=== PATIENT | male | born 1955 | race Caucasian/White ===

== ENCOUNTER → 2019-09-13 | Outpatient (CLI) | payer BC, OTHER | END | disposition home or self-care (01) | LOC: PLD 11:47 → LAB SHORT 11:47 | DX: D48.5 Neoplasm of uncertain behavior of skin (principal) | CPT/HCPCS: 88305 ==

== ENCOUNTER → 2019-10-12 | Outpatient (CLI) | payer BC, OTHER | END | disposition home or self-care (01) | LOC: LAB SHORT 14:48 → PLD 14:48 | DX: C44.310 Basal cell carcinoma of skin of unspecified parts of face (principal) | CPT/HCPCS: 88305 ==

== ENCOUNTER 2021-02-26 08:43 | Day surgery (SDC) | payer BC, OTHER ==
[~2021-02-26] VITALS: Ht 170.2 cm; Wt 87.0 kg
[~2021-02-26 08:43] MED LIST: LEVOTHYROXINE50 MC1 PO; MAGNESIUM OXID500 MG; MULTIPLE VITAM1 EACH PO; TUMS500 MG; Viagra100 MG
== END 2021-02-26 10:32 | disposition home or self-care (01) ==
LOC: ORSCSDS 08:43
PROVIDERS: Internal Medicine Gastroenterology
PROC: 0DBN8ZX Excision of Sigmoid Colon, Via Natural or Artificial Opening Endoscopic, Diagnostic (ICD-10-PCS; principal; 2021-02-26 09:45)
DX: Z12.11 Encounter for screening for malignant neoplasm of colon (principal); K62.1 Rectal polyp; E66.01 Morbid (severe) obesity due to excess calories; Z68.31 Body mass index [BMI] 31.0-31.9, adult; E78.5 Hyperlipidemia, unspecified; K57.30 Diverticulosis of large intestine without perforation or abscess without bleeding; K64.8 Other hemorrhoids; Z79.899 Other long term (current) drug therapy
CPT/HCPCS: 88305; J2704; J7120

== ENCOUNTER 2021-07-07 08:11 | Inpatient (IN) | payer BC, OTHER ==
[~2021-07-07] VITALS: Ht 170.2 cm; Wt 95.2 kg
[2021-07-07 08:39] LABS: BASOPHILS ABSOLUTE AUTO 0.03 K/mm3 (0.00-0.23); BASOPHILS PERCENT AUTO 0 % (0-2); EOSINOPHILS PERCENT AUTO 0 % (0-6); Hematocrit 41.5 % (37.0-53.0); Hemoglobin 14.1 g/dL (13.5-17.5); IMMATURE GRAN ABSOLUTE AUTO 0.28 K/mm3 (0.00-0.10); IMMATURE GRAN PERCENT AUTO 1 % (0-1); LYMPHOCYTES ABSOLUTE AUTO 1.53 K/mm3 (0.84-5.20); LYMPHOCYTES PERCENT AUTO 8 % (21-46); MONOCYTES ABSOLUTE AUTO 1.35 K/mm3 (0.16-1.47); MONOCYTES PERCENT AUTO 7 % (4-13); Mean Corpuscular HGB 29.3 pg (26.0-34.0); Mean Corpuscular Volume 86 fL (80-100); Mean Platelet Volume 9.5 fL (9.1-12.4); NEUTROPHILS PERCENT AUTO 84 % (41-73); Platelet Count 340 K/mm3 (150-400); RDW Coefficient Variation 13.6 % (11.7-14.2); RDW Standard Deviation 43.9 fL (35.1-46.3); Red Blood Cell Count 4.81 M/mm3 (4.30-5.90); White Blood Cell Count 20.19 K/mm3 (4.00-11.30)
[2021-07-07 08:54] LABS: Alanine Aminotransfer (ALT/SGP 129 U/L (12-78); Albumin, Blood 3.1 g/dL (3.4-5.0); Albumin/Globulin Ratio 0.7 (0.8-1.8); Alk Phos 72 U/L (50-136); Anion Gap 23 mmol/L (6-16); Aspartate Aminotrans (AST/SGOT 101 U/L (12-37); Bilirubin, Total 1.2 mg/dL (0.1-1.0); Blood Urea Nitrogen 38 mg/dL (8-24); Bun/Creatinine Ratio 23.9 (12.0-20.0); CO2, Blood 12 mmol/L (21-32); Calcium, Blood 8.4 mg/dL (8.5-10.1); Chloride, Blood 93 mmol/L (98-108); Creatinine, Blood 1.59 mg/dL (0.60-1.20); Globulin, Blood 4.5 g/dL (2.2-4.0); Glomerular Filtration Rate 43 (60-); Glucose, Blood 191 mg/dL (70-99); Potassium, Blood 4.2 mmol/L (3.5-5.5); Sodium, Blood 128 mmol/L (136-145); Total Protein, Blood 7.6 g/dL (6.4-8.2); Troponin I 0.365 ng/mL (0.000-0.040)
[2021-07-07 09:27] LABS: PCO2 Arterial 27.3 mmHg (35-45); PO2 Arterial 61.1 mmHg (80-100); pH Blood Arterial 7.38 (7.35-7.45)
[2021-07-07 10:25] LABS: International Normalized Ratio 1.28; Prothrombin Time Results 13.6 Sec (9.7-11.5)
--- NOTE | 2021-07-07 14:01 | NUR ---
PT TO ICU 8 FROM ED. PT ARRIVES INTUBATED WITH VENT SETTINGS AC 18/450/12/70%, 8.0 ETT, 25 @ TEETH. PROPOFOL @10 MCG/KG/MIN AND ED VERSED GTT. VERSED GTT AND HEPARIN GTT DISCONTINUED PER SUPERVISOR FITTING. PROPOFOL INCREASED TO 30 MCG/KG/MIN PT HAS RR IN THE MID 40'S. FIO2 INCREASED TO 100% UPON TRANSFERRING PT TO ICU BED. LUNG SOUNDS CLEAR/DIM, WATER/BLOOD TINGED OUTPUT FROM ETT. OGT TO LIS, SMALL AMOUNT OF DARK BROWN BILE NOTICED. PT HAS PINPOINT PUPILS, BRISK REACTION TO LIGHT. PT FAILS TO FOLLOW COMMANDS BUT WITHDRAWS FROM PAINFUL STIMULATION AND APPEARS TO REACH FOR TUBE. TEMP SALDANA PATENT AND DRAINING. CURRENT CORE TEMP 99.5. BILATERAL PARDO ABRASIONS NOTED. VSS AT THIS TIME. DR. AYALA IN TO ASSESS PATIENT.
[2021-07-07 15:49] LABS: Source, Urine Catheter
[2021-07-07 15:56] LABS: Appearance, Urine Clear (Clear); Bilirubin, Urine Neg (Neg); Blood, Urine 3+ (Neg); Color, Urine Yellow (P-Yellow); Glucose Qualitative, Urine Neg (Neg); Ketones, Urine Neg (Neg); Leukocyte Esterase, Urine Neg (Neg); Nitrite, Urine Neg (Neg); Protein, Urine 2+ (Neg); Specific Gravity, Urine 1.015 (1.003-1.022); Urobilinogen, Urine NORM (Normal)
[2021-07-07 16:20] LABS: White Blood Cells, Urine 0-2 /hpf (0-5)
--- NOTE | 2021-07-07 16:20 | NUR ---
PT'S SON MILE ([phone]) CALLED FOR UPDATE. PER SON, IS "VERY UPSET" REGARDING PT'S SUDDEN DECLINE AND IS REQUESTING SON CALL FOR UPDATES. REVIEWED PT'S SYMPTOMS AND PAST MEDICAL HISTORY. PER PT'S SON, PT IS "HEALTHY AND ACTIVE" HAS NO PRIOR MEDICAL HISTORY EXCEPT SEASONAL ALLERGIES. PT WAS HAVING AN "ALLERGY ATTACK" YESTERDAY AND HAD A "COUGH" THAT GOT INCREASINGLY WORSE. SON DENIES ANY DRUG/ALCOHOL ABUSE AND DOES NOT BELIEVE PT TAKES ANY PRESCRIBED MEDICATIONS. VERBAL BLOOD CONSENT AND RELEASE OF INFORMATION OBTAINED FROM SON.
[2021-07-07 16:22] LABS: Amorphous Light (0-Heavy); Bacteria Few /hpf; Squamous Epithelial Cells Not Seen /hpf (Few)
[2021-07-07 16:41] LABS: U Amphetamine Screen Not Detected; U Barbituate Screen Not Detected; U Benzodiazapine Screen Not Detected; U Buprenorphine Screen Not Detected; U Cannabinoids Screen Not Detected; U Cocaine Screen Not Detected; U Methadone Screen Not Detected; U Methamphetamine Screen Not Detected; U Opiates Screen Not Detected; U Oxycodone Screen Not Detected; U Phencyclidine Screen Not Detected; U Propoxyphene Screen Not Detected
[2021-07-07 17:07] LABS: Albumin, Blood 3.1 g/dL (3.4-5.0); Anion Gap 22 mmol/L (6-16); Blood Urea Nitrogen 39 mg/dL (8-24); Bun/Creatinine Ratio 23.8 (12.0-20.0); CO2, Blood 12 mmol/L (21-32); Calcium, Blood 8.8 mg/dL (8.5-10.1); Chloride, Blood 93 mmol/L (98-108); Creatinine, Blood 1.64 mg/dL (0.60-1.20); Glomerular Filtration Rate 42 (60-); Glucose, Blood 191 mg/dL (70-99); Phosphorus, Blood 6.3 mg/dL (2.5-4.9); Potassium, Blood 4.4 mmol/L (3.5-5.5); Sodium, Blood 127 mmol/L (136-145)
--- NOTE | 2021-07-07 17:21 | NUR ---
SPOKE WITH PT'S MOTHER IN LAW (JONNY) WHO HAS KNOWN PT "SINCE HE WAS A CHILD". PER JONNY, PT HAS NO PREVIOUS MEDICAL HISTORY AND DOES NOT TAKE ANY PRESCRIPTION MEDICATIONS. JONNY UPDATED WITH PT'S STATUS AND PLAN OF CARE.
--- NOTE | 2021-07-07 18:08 | NUR ---
SHIFT SUMMARY NO ACUTE CHANGES FOLLOWING ADMISSION TO ICU. PT REMAINS INTUBATED, VENT SETTINGS AC 18/450/12/80% WITH SATS IN THE LOW 90'S. PROPOFOL @ 35 MCG/KG/MIN, INCREASED D/T FACIAL GRIMACING. LEVOPHED GTT STARTED D/T HYPOTENSION, CURRENT INFUSION RATE 2 MCG/MIN. 900 ML URINARY OUTPUT FROM SALDANA. CURRENT TEMP 97.9. PICC LINE PLACED TO DIXON. PT'S FAMILY UPDATED WITH PLAN OF CARE AND PT'S STATUS. WILL REPORT TO ONCOMING NURSE.
--- NOTE | 2021-07-07 20:00 | NUR ---
ASSUMPTION OF CARE RECEIVED REPORT FROM JANETH FRANCIS AT 1915, ASSUMED CARE OF PATIENT. PT IS INTUBATED AND SEDATED ON PROPOFOL @ 35MCG/KG/MIN, FIO2 OF 80% DECREASED TO 70% AND SATS >95%. PT WITHDRAWS FROM PAIN. VENT AC: 18/450/12/70%. LUNGS ARE CLEAR THROUGHOUT. NO SECRETIONS IN ETT WITH SUCTIONING. NSR WITH RATE 70-80'S. BLOOD PRESSURES HYPERTENSIVE ON LEVOPHED 2MCGMCG/MIN, TURNED ON STAND BY. OG TUBE TO INTERMITTENT SUCTION WITH MINIMAL BILE OUTPUT. TEMP SALDANA PATENT DRAINING CLEAR, YELLOW URINE. REVIEWING ORDERS, WILL TREAT PRESCRIBED.
[2021-07-08 04:30] LABS: BASOPHILS ABSOLUTE AUTO 0.03 K/mm3 (0.00-0.23); BASOPHILS PERCENT AUTO 0 % (0-2); EOSINOPHILS PERCENT AUTO 0 % (0-6); Hematocrit 36.7 % (37.0-53.0); Hemoglobin 12.7 g/dL (13.5-17.5); IMMATURE GRAN ABSOLUTE AUTO 0.16 K/mm3 (0.00-0.10); IMMATURE GRAN PERCENT AUTO 1 % (0-1); LYMPHOCYTES ABSOLUTE AUTO 0.66 K/mm3 (0.84-5.20); LYMPHOCYTES PERCENT AUTO 5 % (21-46); MONOCYTES ABSOLUTE AUTO 0.71 K/mm3 (0.16-1.47); MONOCYTES PERCENT AUTO 6 % (4-13); Mean Corpuscular HGB 29.1 pg (26.0-34.0); Mean Corpuscular HGB Conc 34.6 g/dL (31.5-36.5); Mean Corpuscular Volume 84 fL (80-100); Mean Platelet Volume 9.5 fL (9.1-12.4); NEUTROPHILS ABSOLUTE AUTO 10.94 K/mm3 (1.96-9.15); NEUTROPHILS PERCENT AUTO 88 % (41-73); Platelet Count 241 K/mm3 (150-400); RDW Coefficient Variation 13.6 % (11.7-14.2); RDW Standard Deviation 42.1 fL (35.1-46.3); Red Blood Cell Count 4.37 M/mm3 (4.30-5.90)
[2021-07-08 05:10] LABS: Albumin, Blood 2.5 g/dL (3.4-5.0); Albumin/Globulin Ratio 0.7 (0.8-1.8); Bilirubin, Total 0.5 mg/dL (0.1-1.0); Bun/Creatinine Ratio 31.7 (12.0-20.0); Calcium, Blood 7.8 mg/dL (8.5-10.1); Creatinine, Blood 1.23 mg/dL (0.60-1.20); Globulin, Blood 3.8 g/dL (2.2-4.0); Potassium, Blood 3.9 mmol/L (3.5-5.5); Total Protein, Blood 6.3 g/dL (6.4-8.2)
--- NOTE | 2021-07-08 06:27 | NUR ---
PT REMAINS INTUBATED AND SEDATED ON PROPOFOL @ 35MCG/KG/MIN. VENT AC: 18/450/12/55%, SATS 95%. PT WITHDRAWS TO PAINFUL STIMULI. LUNG SOUNDS CLEAR THROUGHOUT, DIMINISHED IN BASES. NO SECRETIONS IN ETT. BLOOD PRESSURES REMAIN STABLE WITH LEVOPHED @ 1MCG/MIN. OG TO LIS WITH DARK GREEN BILE DRAINAGE. TEMP SALDANA PATENT DRAINING CLEAR, YELLOW URINE. TEMPERATURE HAS BEEN 95-96F WITH PT BEING DIAPHORETIC/CLAMMY, WARM BLANKETS PLACED. WILL CONTINUE TO MONITOR AND REPORT TO ONCOMING RN.
--- NOTE | 2021-07-08 11:05 | NUR ---
ASSUMED CARE OF PT, REPORT RCV'D FROM JANETH ZAMBRANO. PT INTUBATED AND SEDATED. VENT SETTINGS AC 18/450/12/55% WITH SATS>90%. PROPOFOL @ 35 MCG/KG/MIN FOR SEDATION, PT FAILS TO FOLLOW COMMANDS BUT WITHDRAWS FROM PAIN AND DISPLAYS FACIAL GRIMACING WITH NOXIOUS STIMULI. LEVOPHED AT 1 MCG/MIN TO MAINTAIN MAP>65. OGT TO LIS, MODERATE AMOUNT OF GREEN BILE OUTPUT. TEMP SALDANA PATENT AND DRAINING TO GRAVITY. MULTIPLE FAMILY MEMBERS AND FRIENDS CALLING THIS AM, THIS RN SPOKE WITH AND DESIGNATED HER POINT OF CONTACT FOR PEOPLE TO LIMIT CALLS TO THE HOSPITAL. , JAKE, AGREES FOR NURSING STAFF TO REFER FRIENDS/FAMILY TO CALL HER. SEE FULL SHIFT ASSESSMENT.
--- NOTE | 2021-07-08 14:50 | NUR ---
UPDATED PT'S SON MILE. REMINDED FAMILY THAT D/T EXCESSIVE PHONE CALLS FOR THIS PT WE NEED A POINT OF CONTACT TO REFER PHONE CALLS TO. PER SON AND , WILL CALL IN THE MORNING FOR UPDATE AND SON (MILE) WILL CALL IN THE EVENING FOR UPDATE.
--- NOTE | 2021-07-08 18:12 | NUR ---
SHIFT SUMMARY PT REMAINS INTUBATED AND SEDATED. VENT SETTINGS AC 18/450/12/50% WITH SATS LOW 90%. PROPOFOL REMAINS AT 35 MCG/KG/MIN. NO NEUROLOGICAL CHANGES. OGT TO LIS WITH 300 ML GREEN BILE OUTPUT, WILL START TUBE FEED TOMORROW PER DR. AYALA, DIETARY CONSULT PLACED. 900 ML URINARY OUTPUT FROM SALDANA. LEVOPHED REMAINS OFF AND BP REMAINS WNL. VSS T/O SHIFT. WILL REPORT TO ONCOMING NURSE.
--- NOTE | 2021-07-08 19:30 | NUR ---
ASSUMPTION OF CARE RECEIVED REPORT FROM JANETH FRANCIS @ 1900 AND ASSUMED CARE. PT REMAINS INTUBATED AND SEDATED, PROPOFOL INCREASED TO 40MCG/KG/MIN WHILE IN ROOM DUE TO INCREASED COUGHING AGAINST THE VENTILATOR. VENT AT AC: 18/450/12/50%, SATS AT 98%. PT GRIMACES TO NOXIOUS STIMULI, BUT UNABLE TO FOLLOW COMMANDS. LUNGS CLEAR BILATERALLY, SCANT SECRETIONS IN ETT. BLOOD PRESSURES STABLE, AND PT AFEBRILE IN THE 98F RANGE. OG TO LIS, GREEN BILE. TEMP SALDANA PATENT DRAINING CLEAR YELLOW URINE. WILL CONTINUE TO MONITOR AND PROVIDE TREATMENT PRESCRIBED.
--- NOTE | 2021-07-08 23:09 | NUR ---
PHYSICIAN COMMUNICATION CALLED DR. AYALA REGARDING PT INCREASE IN PROPOFOL. PT COUGHING AGAINST TUBE RESULTING IN DESATURATIONS AND SHOWING SIGNS OF DISCOMFORT, I.E. GRIMACING. GAVE NEW ORDER FOR FENTANYL 75-100MCG Q2H PRN.
[2021-07-09 03:25] LABS: BASOPHILS ABSOLUTE AUTO 0.01 K/mm3 (0.00-0.23); BASOPHILS PERCENT AUTO 0 % (0-2); EOSINOPHILS PERCENT AUTO 0 % (0-6); Hematocrit 33.1 % (37.0-53.0); Hemoglobin 11.5 g/dL (13.5-17.5); IMMATURE GRAN PERCENT AUTO 2 % (0-1); LYMPHOCYTES ABSOLUTE AUTO 0.38 K/mm3 (0.84-5.20); LYMPHOCYTES PERCENT AUTO 3 % (21-46); MONOCYTES ABSOLUTE AUTO 0.78 K/mm3 (0.16-1.47); MONOCYTES PERCENT AUTO 7 % (4-13); Mean Corpuscular HGB 29.9 pg (26.0-34.0); Mean Corpuscular HGB Conc 34.7 g/dL (31.5-36.5); Mean Corpuscular Volume 86 fL (80-100); Mean Platelet Volume 9.7 fL (9.1-12.4); NEUTROPHILS ABSOLUTE AUTO 9.69 K/mm3 (1.96-9.15); NEUTROPHILS PERCENT AUTO 88 % (41-73); NRBC ABSOLUTE 0.02 K/mm3 (0.00-0.02); NRBC Auto 0.2 /100 WBC (0.0-0.2); Platelet Count 215 K/mm3 (150-400); RDW Coefficient Variation 13.8 % (11.7-14.2); RDW Standard Deviation 43.4 fL (35.1-46.3); Red Blood Cell Count 3.85 M/mm3 (4.30-5.90); White Blood Cell Count 11.06 K/mm3 (4.00-11.30)
[2021-07-09 03:41] LABS: Albumin, Blood 2.2 g/dL (3.4-5.0); Anion Gap 7 mmol/L (6-16); Blood Urea Nitrogen 39 mg/dL (8-24); Bun/Creatinine Ratio 34.2 (12.0-20.0); CO2, Blood 23 mmol/L (21-32); Calcium, Blood 7.4 mg/dL (8.5-10.1); Chloride, Blood 112 mmol/L (98-108); Creatinine, Blood 1.14 mg/dL (0.60-1.20); Glomerular Filtration Rate >60 (60-); Glucose, Blood 149 mg/dL (70-99); Phosphorus, Blood 3.5 mg/dL (2.5-4.9); Sodium, Blood 142 mmol/L (136-145)
--- NOTE | 2021-07-09 06:06 | NUR ---
PT REMAINS INTUBATED AND SEDATED. PROPOFOL WAS INCREASED TO 50MCG/KG/MIN DUE TO COUGHING OVER THE VENT AND SHOWING S/S OF DISCOMFORT. VENT REMAINED AT AC: 18/450/12/50%, SATS 93-94%. CONTINUES TO WITHDRAW TO NOXIOUS STIMULI AND UNABLE TO FOLLOW COMMANDS. HR IN 50-60'S, BP STABLE, MAP REMAINED >65. OG TO ILS. TEMP SALDANA PATENT DRAINING TO GRAVITY, CLEAR/YELLOW URINE. WILL GIVE REPORT TO ONCOMING RN.
--- NOTE | 2021-07-09 08:22 | NUR ---
[place] of Care: Care assumed at 0700hr. Patient intubated and sedated with propofol gtt at 50mcg/kg/min. Patient responds to noxious stimuli with facial grimace, but not moving any extremities or following any commands. Positive gag and cough reflex. Propofol gtt decreased to 45mcg/kg/min, plan to continue to decrease to better assess neuro status. Vent to AC 18/450/12/50%, spO2- 93-95%, tolerating vent without difficulty. Will discuss decreasing PEEP with Dr. Wen this morning, will also discuss starting TF. OG currently to low suction, with small amount of green bile output in tubing. PICC line patent and intact, infusing without difficulty. Shepherd cath patent and intact, draining clear yellow urine. Bilateral soft wrist restraints in place to protect lines, tubes, cords. Will continue to monitor.
--- NOTE | 2021-07-09 18:54 | NUR ---
Shift Summary: No significant changes throughout shift. Spoke with Dr. Wen this morning, received plan to decrease PEEP as tolerated. RT Latricia decreased PEEP to 10 approx 1000hr, FiO2 also decreased to 40% at approx 1200hr. Vent now to AC 18/450/10/405, spO2 90-95% for remainder of shift. Occasional coughing but otherwise tolerating vent without difficulty. Propofol gtt decreased to 40mcg/kg/min, then stopped for sedation vacation this afternoon. Patient able then able to open eyes to verbal stimuli, and follow commands to squeeze hands and move feet. Unable to nod yes/no or follow any other commands. Sedation then re-started after approx 25min as patient was becoming increasingly restless, respiratory rate increased to 40, and spO2 decreased to 87-88. Prn fentanyl x1 dose also given (per facial grimace) with good effect noted. Patient now appear calm and comfortable. Shepherd cath remains patent and intact, draining dark green tinged urine. Will continue to monitor until report to NOC shift RN.
--- NOTE | 2021-07-09 19:41 | NUR ---
ASSUMPTION OF CARE Received report from JANETH Juárez @ 4545. Pt remains intubated and sedated. Propofol at 45mcg/kg/min. Pt continues to respond to noxious stimuli, but does not follow commands. Vent AC: 18/450/10/50%, sats at 93%. HR is sinus duyen in 50's. Tube feed at 25ml/hr, 30ml q4h flush; goal 35ml/hr. Temp roberto patent draining clear/yellow-green urine. Will continue to monitor and treat as prescribed.
--- NOTE | 2021-07-10 02:07 | NUR ---
PT CONTINUES TO BE TACHYPNEIC AND BREATH OVER THE VENT. SHOWING INCREASED SIGNS OF DISCOMFORT, I.E. GRIMACING. PRN FENTANYL GIVEN AND PROPOFOL INCREASED. WILL MONITOR FOR EFFECT.
[2021-07-10 03:44] LABS: BASOPHILS ABSOLUTE AUTO 0.02 K/mm3 (0.00-0.23); BASOPHILS PERCENT AUTO 0 % (0-2); EOSINOPHILS PERCENT AUTO 0 % (0-6); Hematocrit 33.6 % (37.0-53.0); Hemoglobin 11.2 g/dL (13.5-17.5); IMMATURE GRAN ABSOLUTE AUTO 0.48 K/mm3 (0.00-0.10); IMMATURE GRAN PERCENT AUTO 4 % (0-1); LYMPHOCYTES ABSOLUTE AUTO 0.45 K/mm3 (0.84-5.20); LYMPHOCYTES PERCENT AUTO 4 % (21-46); MONOCYTES ABSOLUTE AUTO 0.81 K/mm3 (0.16-1.47); MONOCYTES PERCENT AUTO 7 % (4-13); Mean Corpuscular HGB 29.3 pg (26.0-34.0); Mean Corpuscular HGB Conc 33.3 g/dL (31.5-36.5); Mean Corpuscular Volume 88 fL (80-100); Mean Platelet Volume 9.5 fL (9.1-12.4); NEUTROPHILS ABSOLUTE AUTO 9.57 K/mm3 (1.96-9.15); NEUTROPHILS PERCENT AUTO 85 % (41-73); NRBC ABSOLUTE 0.06 K/mm3 (0.00-0.02); NRBC Auto 0.5 /100 WBC (0.0-0.2); Platelet Count 203 K/mm3 (150-400); RDW Coefficient Variation 14.2 % (11.7-14.2); RDW Standard Deviation 45.1 fL (35.1-46.3); Red Blood Cell Count 3.82 M/mm3 (4.30-5.90); White Blood Cell Count 11.33 K/mm3 (4.00-11.30)
[2021-07-10 04:03] LABS: Albumin, Blood 2.1 g/dL (3.4-5.0); Anion Gap 7 mmol/L (6-16); Blood Urea Nitrogen 41 mg/dL (8-24); CO2, Blood 22 mmol/L (21-32); Calcium, Blood 6.9 mg/dL (8.5-10.1); Chloride, Blood 115 mmol/L (98-108); Glomerular Filtration Rate >60 (60-); Glucose, Blood 149 mg/dL (70-99); Magnesium, Blood 3.4 mg/dL (1.6-2.4); Phosphorus, Blood 2.4 mg/dL (2.5-4.9); Potassium, Blood 3.9 mmol/L (3.5-5.5); Sodium, Blood 144 mmol/L (136-145)
--- NOTE | 2021-07-10 04:19 | NUR ---
PT CONTINUES TO BREATH OVER VENT, RATES OF 30-40'S AND O2 SATS 89%. GRIMACING WITH ORAL CARE. GAVE PRN ATIVAN 2MG AND RT INCREASED FIO2 TO 60%. RESPIRATIONS NOW DECREASED TO 20-30'S AND O2 SATS 94%. WILL CONTINUE TO MONITOR AND TREAT ORDERED.
--- NOTE | 2021-07-10 06:36 | NUR ---
Pt remains intubated and sedated. Propofol @ 55mcg/min/kg, titrated as previously charted for comfort and sedation. Ativan and Fentanyl given prn as sedation adjunct due to pt breathing over vent/tachypnic rates. Vent AC: 18/450/10/60%, sats at 94%. Lungs remained clear bilaterally. Respirations now in 20's. Continues to withdraw from noxious stimuli and weak equal transit bus driver bilaterally. Received info from that pt is very hard of hearing. HR remained NS in 60-70's. Blood pressures stable. Tube feed via OG is at goal of 35ml/hr with q4h 30ml flushes. Residuals <10mls. Temp roberto patent, draining greenish/yellow clear urine. Pt febrile at 101.1, Tylenol given, pt now at 99.0. Will give report to oncoming RN.
--- NOTE | 2021-07-10 08:00 | NUR ---
INITIAL ASSESSMENT PATIENT INTUBATED AND SEDATED. PATIENT RESPONDS TO PAINFUL STIMULI. PATIENT WEAKLY MOVES EXTREMITIES TO PAIN. PATIENT WIYOT AT BASELINE PER REPORT. SCLERA REDDENED. PATIENT AFEBRILE. NO SIGNS OF PAIN NOTED. LUNGS COARSE IN UPPER LOBES AND CLEAR IN LOWER LOBES. PATIENT ON VENT SETTINGS OF AC 18, TV 450, PEEP 10 AND 60% FIO2. SCANT AMOUNT OF THICK, HAAS SECRETIONS BEING SUCTIONED FROM ETT. RR 20S TO 40S. PATIENT IN SB TO SR, HR 50S TO 60S. NORMOACTIVE BS NOTED. OG IN PLACE. TF AT GOAL RATE. DATE OF LAST BM UNKNOWN. TEMP SALDANA DRAINING CLEAR, YELLOW URINE. ABRASION NOTED TO BILAT SHINS. PROPOFOL AT 55 MCG/ KG/ MINUTE, NS AT 100 MLS/ HOUR. BED LOW, CALL LIGHT IN REACH. WILL CONTINUE TO MONITOR PATIENT FREQUENTLY THROUGHOUT SHIFT.
--- NOTE | 2021-07-10 11:00 | NUR ---
DR. CHACON UPDATED ON PATIENT STATUS. NO ORDER FOR PHOS OF 2.4.
--- NOTE | 2021-07-10 12:00 | NUR ---
PATIENT AFEBRILE. HR 60S TO 70S. SBP LOW 100S TO 120S. PATIENT REMAINS ON SAME VENT SETTINGS. URINE GREEN IN COLOR. BLOOD SUGAR OF 169. NO OTHER ACUTE CHANGES TO NOTE ON AT THIS TIME. WILL CONTINUE TO MONITOR.
--- NOTE | 2021-07-10 12:12 | NUR ---
NO SEDATION VACATION TODAY PER DR. CHACON.
--- NOTE | 2021-07-10 16:00 | NUR ---
PATIENT AFEBRILE. HR 60S TO 70S. RR 20S TO 40S. SBP 1-TEENS TO 120S. VHP AT NEW GOAL RATE OF 20 MLS/ HOUR. NO OTHER ACUTE CHANGES TO NOTE ON AT THIS TIME. WILL CONTINUE TO MONITOR.
--- NOTE | 2021-07-10 19:27 | NUR ---
SHIFT SUMMARY PATIENT REMAINED INTUBATED AND SEDATED. PATIENT CONTINUED TO RESPOND TO PAINFUL STIMULI. PATIENT HAD TMAX OF 99.1 DEGREES FAHRENHEIT. LUNGS REMAINED COARSE IN UPPER LOBES AND DIM IN LOWER LOBES. RR 20S TO 50S. PATIENT REMAINED ON AC 18, TV 450, PEEP 10 AND 60% FIO2. CONTINUED TO SUCTION UP SCANT AMOUNTS OF THICK, DARK HAAS SPUTUM FROM ETT. PATIENT REMAINED SB TO SR, HR 50S TO 70S. SBP 90S TO 120S. 1000 GREEN URINE OUT FROM SALDANA. NO CHANGE IN SKIN. NS TKO. PROPOFOL AT 55 MCG/ KG/ MINUTE. SPUTUM CULTURE SENT TO LAB. BLOOD SUGARS 169 AND 151. BED LOW, CALL LIGHT IN REACH. PATIENT APPEARS COMFORTABLE AT THIS TIME. REPORT GIVEN TO ASSUMING CLINICAL NUTRITIONIST RN.
--- NOTE | 2021-07-10 20:11 | NUR ---
ASSUMPTION OF CARE Received report from JANETH Mars @ 191. Pt remains intubated and sedated. Propofol @ 55/mcg/kg/min. Grimacing with oral care, unable to follow commands. Vent: AC 18/450/10/60%, sats 93-94%. Lungs coarse in uppers, dim and clear in bases. Scant thick, mendiola secretions with ETT suctioning. SR 50-60's. BP stable. Generalized edema noted throughout, trace scrotal and 1+ bilateral hands. Pt afebrile. Tube feed, VHP @ goal of 20ml/hr with q4 30ml flush, 10ml residual. Temp roberto patent and draining clear greem/yellow urine. Will continue to monitor and treat patient as prescribed.
--- NOTE | 2021-07-11 00:23 | NUR ---
OG REPLACEMENT Upon completing pt's bath, OG tube found outside of the patient. New OG placed and confirmed by gastric contents. VSS, will continue to monitor the patient and treat as prescribed.
[2021-07-11 04:28] LABS: BASOPHILS ABSOLUTE AUTO 0.03 K/mm3 (0.00-0.23); BASOPHILS PERCENT AUTO 0 % (0-2); EOSINOPHILS ABSOLUTE AUTO 0.04 K/mm3 (0.00-0.68); EOSINOPHILS PERCENT AUTO 0 % (0-6); Hematocrit 36.3 % (37.0-53.0); Hemoglobin 11.9 g/dL (13.5-17.5); Mean Corpuscular HGB 28.7 pg (26.0-34.0); Mean Corpuscular HGB Conc 32.8 g/dL (31.5-36.5); Mean Corpuscular Volume 88 fL (80-100); Mean Platelet Volume 9.6 fL (9.1-12.4); NRBC ABSOLUTE 0.04 K/mm3 (0.00-0.02); NRBC Auto 0.3 /100 WBC (0.0-0.2); Platelet Count 173 K/mm3 (150-400); RDW Coefficient Variation 14.6 % (11.7-14.2); RDW Standard Deviation 46.8 fL (35.1-46.3); Red Blood Cell Count 4.14 M/mm3 (4.30-5.90); White Blood Cell Count 11.98 K/mm3 (4.00-11.30)
[2021-07-11 04:52] LABS: Albumin, Blood 2.1 g/dL (3.4-5.0); Anion Gap 5 mmol/L (6-16); Blood Urea Nitrogen 39 mg/dL (8-24); Bun/Creatinine Ratio 45.6 (12.0-20.0); CO2, Blood 24 mmol/L (21-32); Calcium, Blood 7.1 mg/dL (8.5-10.1); Chloride, Blood 113 mmol/L (98-108); Creatinine, Blood 0.86 mg/dL (0.60-1.20); Glomerular Filtration Rate >60 (60-); Glucose, Blood 129 mg/dL (70-99); Magnesium, Blood 3.4 mg/dL (1.6-2.4); Phosphorus, Blood 2.6 mg/dL (2.5-4.9); Potassium, Blood 4.2 mmol/L (3.5-5.5); Sodium, Blood 142 mmol/L (136-145)
[2021-07-11 05:03] LABS: IMMATURE GRAN ABSOLUTE AUTO 0.79 K/mm3 (0.00-0.10); IMMATURE GRAN PERCENT AUTO 7 % (0-1); LYMPHOCYTES ABSOLUTE AUTO 0.69 K/mm3 (0.84-5.20); LYMPHOCYTES PERCENT AUTO 6 % (21-46); MONOCYTES PERCENT AUTO 3 % (4-13); NEUTROPHILS ABSOLUTE AUTO 10.03 K/mm3 (1.96-9.15); NEUTROPHILS PERCENT AUTO 84 % (41-73)
--- NOTE | 2021-07-11 06:20 | NUR ---
Pt remains intubated and sedated. Propofol continues at 55mcg/kg/min, Fentanyl prn. Vent: AC 18/450/10/60%, sats 93-94%. Lungs clear with small thick, mendiola secretions via ETT suction. Pt febrile, T-max 100.2. OG: VHP at goal of 20ml/hr, residuals of 10mls. Temp roberto patent, draining clear green/yellow urine. VSS. Will give report to oncoming RN.
--- NOTE | 2021-07-11 10:15 | NUR ---
ASSUMED CARE OF PT, REPORT RCV'D FROM JANETH ZAMBRANO. PT INTUBATED AND SEDATED, VENT SETTINGS AC18/450/10/60% WITH SATS>90%. PROPOFOL INCREASED FROM 55 TO 60 MCG/KG/MIN D/T INCREASED RR. PT DISPLAYS FACIAL GRIMACING WITH ORAL CARE AND WITHDRAWS FROM PAINFUL STIMULI, FAILS TO FOLLOW COMMANDS AT THIS TIME. ABDOMEN FIRM WITH SLIGHT DISTENSION, HYPOACTIVE BOWEL TONES X4. VITAL HIGH PROTEIN @ 20 ML (GOAL RATE), LOW RESIDUALS. SALDANA PATENT AND DRAINING TO GRAVITY. SEE FULL SHIFT ASSESSMENT.
--- NOTE | 2021-07-11 18:18 | NUR ---
SHIFT SUMMARY PT REMAINS INTUBATED, VENT SETTINGS 18/450/10/85%. PT VERY EASILY AGITATED WITH ANY MOVEMENT CAUSING RR INCREASE INTO THE 50'S AND SATS DROPPING TO THE MID 70'S. PROPOFOL INCREASED TO 65 MCG/KG/MIN, FENTANYL AND ATIVAN PUSHES PRN. MODERATE AMOUNT OF THICK HAAS SECRETIONS FROM ETT. BP STABLE. PT'S SON MILE UPDATED WITH PT'S STATUS. WILL REPORT TO ONCOMING NURSE.
--- NOTE | 2021-07-11 20:09 | NUR ---
ASSUMED CARE REPORT RECEIVED FROM PENNY FOWLER AT 1930. PT INTUBATED AND SEDATED ON 65 MCG/KG OF PROPOFOL. VENT SETTINGS 18/450/10/85% WITH SPO2 90%. PT WITHDRAWS FROM PAINFUL STIMULI. LUNGS CLEAR WITH DIMINISHED BASES. HR 50'S SR ON MONITOR, SBP 115'S. TF RUNNING AT GOAL RATE OF 20 ML/HR WITH 30 ML/HR Q4H WATER FLUSHES. NEW ORDER PLACED FOR PRECEDEX. SALDANA DRAINING TO GRAVITY. HYPERACTIVE BOWEL TONES, 20 ML RESIDUALS OUT OF OG TUBE.
--- NOTE | 2021-07-11 22:40 | NUR ---
UDPATED DR CHACON REGARDING PT'S FIO2 AT 100% AND PT'S SPO2 87-88%. NEW ORDER TO INCREASE PEEP TO 15. RT NOTIFIED.
--- NOTE | 2021-07-12 02:03 | NUR ---
PT SPO2 DECREASED TO 84-86%, FENTANYL GIVEN WITH MINIMAL EFFECT. RT INCREASED PEEP TO 14. SMALL AMOUNT OF SECRETIONS SUCTIONED FROM ETT. FIO2 AT 100%. PT'S SPO2 INCREASED TO 98%.
[2021-07-12 03:46] LABS: PCO2 Arterial 43.7 mmHg (35-45); PO2 Arterial 84.8 mmHg (80-100); pH Blood Arterial 7.36 (7.35-7.45)
[2021-07-12 03:55] LABS: Hematocrit 36.9 % (37.0-53.0); Hemoglobin 11.8 g/dL (13.5-17.5); Mean Corpuscular HGB 29.1 pg (26.0-34.0); Mean Corpuscular Volume 91 fL (80-100); Mean Platelet Volume 9.7 fL (9.1-12.4); NRBC ABSOLUTE 0.02 K/mm3 (0.00-0.02); NRBC Auto 0.2 /100 WBC (0.0-0.2); Platelet Count 146 K/mm3 (150-400); RDW Coefficient Variation 14.6 % (11.7-14.2); RDW Standard Deviation 48.9 fL (35.1-46.3); Red Blood Cell Count 4.05 M/mm3 (4.30-5.90); White Blood Cell Count 10.57 K/mm3 (4.00-11.30)
[2021-07-12 04:14] LABS: Anion Gap 3 mmol/L (6-16); Blood Urea Nitrogen 36 mg/dL (8-24); Bun/Creatinine Ratio 43.6 (12.0-20.0); CO2, Blood 26 mmol/L (21-32); Chloride, Blood 113 mmol/L (98-108); Creatinine, Blood 0.83 mg/dL (0.60-1.20); Glomerular Filtration Rate >60 (60-); Glucose, Blood 164 mg/dL (70-99); Magnesium, Blood 3.6 mg/dL (1.6-2.4); Phosphorus, Blood 3.3 mg/dL (2.5-4.9); Sodium, Blood 142 mmol/L (136-145)
--- NOTE | 2021-07-12 04:38 | NUR ---
UPDATE PT SPO2 93-94% CXR AND REPOSITION DONE CAUSING SATS TO DROP AND SUSTAIN AT 85%. RT CALLED TO BEDSIDE, PT SUCTIONED WITH SCANT AMOUNT OF SECRETIONS FROM ETT PT REMAINS AT 85%. PEEP INCREASED TO 15, FIO2 REMAINS AT 100%. SATS INCREASE TO 89%.
--- NOTE | 2021-07-12 05:52 | NUR ---
SHIFT SUMMARY PT REMAINS INTUBATED AND SEDATED. PROPOFOL INFUSING AT 65 MCG/KG/MIN AND PRECEDEX AT 0.2 MCG/KG/HR. FIO2 INCREASED THIS SHIFT TO 100% AND PEEP INCREASED TO 15. CURRENT VENT SETTINGS 18/450/15/100%, PT CURRENT SPO2 92%. PT NOT TOLERATING BEING REPOSITIONED, SATS DECREASE WITH ANY ACTIVITY AND TAKES A LONG TIME TO RECOVER. PRN FENTANYL AND ATIVAN GIVEN PER EMAR. SALDANA DRAINING BLUE/GREEN URINE TO GRAVITY. LUNGS CONTINUE TO BE CLEAR WITH DIMINISHED BASES. TF RESIDUALS INCREASED T/O SHIFT, 0400 RESIDUALS OF 110 MLS. BOWEL TONES HYPOACTIVE. WILL CONTINUE TO MONITOR UNTIL REPORT GIVEN TO ONCOMING RN.
[2021-07-12 05:59] LABS: BAND PERCENT MAN 8 % (0-8); BASOPHILS PERCENT MAN 0 % (0-2); EOSINOPHILS PERCENT MAN 0 % (0-6); LYMPHOCYTES ABSOLUTE MAN 0.42 K/mm3 (0.84-5.20); LYMPHOCYTES PERCENT MAN 4 % (21-46); METAMYELOCYTE PERCENT MAN 1 % (0-0); MONOCYTES ABSOLUTE MAN 0.21 K/mm3 (0.16-1.47); MONOCYTES PERCENT MAN 2 % (4-13); MYELOCYTE ABSOLUTE MAN 0.21 K/mm3 (0.00-0.00); MYELOCYTE PERCENT MAN 2 % (0-0); NEUTROPHILS ABSOLUTE MAN 9.61 K/mm3 (1.96-9.15); SEG NEUTROPHILS PERCENT MAN 83 % (41-73); TOTAL CELLS COUNTED 100
--- NOTE | 2021-07-12 10:55 | NUR ---
ASSUMED CARE OF PT, REPORT RCV'D FROM JANETH VIGIL. PT INTUBATED AND SEDATED. PT'S SATS LOW 80% ON 100% FI02 THIS AM. DR. CHACON NOTIFIED AND VENT CHANGES MADE. PT CONTINUES TO SAT LOW 80% WITH INCREASED WORK OF BREATHING AND BREATH STACKING. DECISION TO PARALYZE PT. BIS MONITOR ATTACHED, PROPOFOL REMAINS AT 65 MCG/KG/MIN, PRECEDEX INCREASED TO 0.7 MCG/KG/HOUR BIS MONITOR 50-60. NIMBEX STARTED AT 1.5 MCG/KG/MIN, PT CONTINUED TO BE OUT OF COMPLIANCE WITH VENT WITH INCREASED RR AND WOB, 4/4 TOF. NIMBEX INCREASED PER EMAR RECOMMENDATION, PT CURRENTLY ON 7 MCG/KG/MIN (MAX 10), PT CONTINUES TO HAVE 4/4 TOF BUT IS COMPLIANT WITH VENT. SATS INCREASED TO MID 90'S. VENT SETTINGS 18/400/18/100%. PLAN TO PRONE THIS AFTERNOON. SEE FULL SHIFT ASSESSMENT
--- NOTE | 2021-07-12 13:05 | NUR ---
VENT SETTINGS AC 18/400/18/60% WITH SATS 89-91%. PT COMPLIANT WITH VENT SETTINGS. NIMBEX @ 3 MCG/KG/MIN 1/4 TOF, PROPOFOL 40 MCG/KG/MIN AND PRECEDEX 0.4 MCG/KG/HR BIS MONITOR 42. RESTRAINTS REMOVED.
--- NOTE | 2021-07-12 14:59 | NUR ---
SPOKE WITH PT'S SON MILE, UPDATED HIM WITH PT'S PROGRESS AND PLAN OF CARE.
--- NOTE | 2021-07-12 18:46 | NUR ---
SHIFT SUMMARY PT REMAINS INTUBATED AND SEDATED. VENT SETTINGS AC 18/400/18/40% WITH SATS 92%. PT PARALYZED, NIMBEX @ 2.5 MCG/KG/MIN (1/4 TOF RIGHT EYEBROW). PROPOFOL @ 40 MCG/KG/MIN, PRECEDEX ON STANDBY D/T BRADYCARDIA. BIS MONITOR 30-37. PT PRONED AT 1715, ORDER TO PRONE FOR 16 HOURS (UNPRONE @0915) AND UNPRONE FOR 8H. 900 ML URINARY OUTPUT FROM SALDANA. PT CONTINUES TO HAVE DISTENDED ABDOMEN WITH HYPOACTIVE BOWELS, MILK OF MAG AND SUPPOSITORY GIVEN. VITAL HIGH PROTEIN @ 20 ML/HR, NO RESIDUALS. VSS. SEE PREVIOUS NOTES FROM THIS SHIFT. WILL REPORT TO ONCOMING NURSE.
--- NOTE | 2021-07-12 23:29 | NUR ---
ASSUMED CARE AT 1900 PT LAYING IN BED PRONED WITH VENT SETTINGS AC 18, TV 400, PEEP 18, FIO2 40%. NIMBEX INFUSING AT 2.5MCG/KG/MIN; BIS SCORE 40-50'S; TOF 3/4; PROPOFOL INFUSING AT 40MCG/KG/MIN. HR 60-70'S. SBP 130-150'S. VHP INFUSING VIA OG AT 20ML/HR (GOAL) WITH 30ML WATER FLUSHES Q4HR; 155ML OF RESIDUALS NOTED. SALDANA PATENT AND DRAINING TO GRAVITY. PICC TO DIXON PATENT WITH DRESSING C/D/I. PT WILL CONT TO BE PRONED UNTIL 0915 ON 07/13/21. SEE SHIFT ASSESSMENT FOR FULL ASSESSMENT.
[2021-07-13 04:48] LABS: Hematocrit 40.7 % (37.0-53.0); Hemoglobin 12.9 g/dL (13.5-17.5); Mean Corpuscular HGB 28.9 pg (26.0-34.0); Mean Corpuscular HGB Conc 31.7 g/dL (31.5-36.5); Mean Corpuscular Volume 91 fL (80-100); Mean Platelet Volume 9.4 fL (9.1-12.4); NRBC ABSOLUTE 0.02 K/mm3 (0.00-0.02); NRBC Auto 0.1 /100 WBC (0.0-0.2); Platelet Count 166 K/mm3 (150-400); RDW Coefficient Variation 14.7 % (11.7-14.2); RDW Standard Deviation 49.4 fL (35.1-46.3); Red Blood Cell Count 4.47 M/mm3 (4.30-5.90); White Blood Cell Count 15.13 K/mm3 (4.00-11.30)
--- NOTE | 2021-07-13 04:51 | NUR ---
UPDATE PT SBP GRADUALLY INCREASED UP TO 180-200 T/O NIGHT. PRN FENTANYL GIVEN X3 POSSIBLY RELATED TO PAIN BUT HAD MINIMAL AFFECT. BIS SCORE 40-50'S. TOF 2/4. HR 70'S. CALLED DR LOONEY WHO PROVIDED ORDERS FOR HYDRALAZINE 10-20MG Q4HR PRN FOR SBP >160.
[2021-07-13 05:13] LABS: Anion Gap 0 mmol/L (6-16); Blood Urea Nitrogen 34 mg/dL (8-24); CO2, Blood 31 mmol/L (21-32); Calcium, Blood 7.3 mg/dL (8.5-10.1); Chloride, Blood 110 mmol/L (98-108); Creatinine, Blood 0.68 mg/dL (0.60-1.20); Glomerular Filtration Rate >60 (60-); Glucose, Blood 136 mg/dL (70-99); Magnesium, Blood 3.5 mg/dL (1.6-2.4); Phosphorus, Blood 2.9 mg/dL (2.5-4.9); Potassium, Blood 5.7 mmol/L (3.5-5.5); Sodium, Blood 141 mmol/L (136-145)
--- NOTE | 2021-07-13 06:44 | NUR ---
END OF SHIFT SUMMARY PT CONT TO BE INTUBATED WITH VENT SETTINGS AC 18, TV 400, PEEP 15, FIO2 40%; PRONED ALL NIGHT. NIMBEX INFUSING AT 2.5MCG/KG/MIN; TOF 2-4/4; PROPOFOL INFUSING AT 50MCG/KG/MIN; BIS 40-50. HR 60-70'S. SEE NOTE ABOUT HTN; HYDRALAZINE 20MG GIVEN, FENTANYL X4 GIVEN; SBP 140-170. VHP INFUSING VIA OG AT 20ML/HR (GOAL) WITH 30ML WATER FLUSHES Q4HR. SALDANA PATENT AND DRAINING TO GRAVITY. WILL REPORT TO AM RN WHEN AVAILABLE. PT CALLED ASKING HOW THE NIGHT WENT. WHEN NOTIFIED THAT HE WAS HAVING HTN, SHE STATED SHE WAS "FREAKING OUT". RN ABLE TO REASSURE HER.
[2021-07-13 07:08] LABS: BAND PERCENT MAN 12 % (0-8); BASOPHILS PERCENT MAN 0 % (0-2); EOSINOPHILS PERCENT MAN 0 % (0-6); LYMPHOCYTES PERCENT MAN 4 % (21-46); METAMYELOCYTE ABSOLUTE MAN 0.45 K/mm3 (0.00-0.00); METAMYELOCYTE PERCENT MAN 3 % (0-0); MONOCYTES ABSOLUTE MAN 0.45 K/mm3 (0.16-1.47); MONOCYTES PERCENT MAN 3 % (4-13); MYELOCYTE PERCENT MAN 4 % (0-0); NEUTROPHILS ABSOLUTE MAN 13.01 K/mm3 (1.96-9.15); SEG NEUTROPHILS PERCENT MAN 74 % (41-73); TOTAL CELLS COUNTED 100
--- NOTE | 2021-07-13 09:00 | NUR ---
ASSUMED CARE OF PT, REPORT RCV'D FROM JANETH ZAMBRANO. PT INTUBATED, VENT SETTINGS AC 18/400/15/40% WITH SATS 92%. LUNG SOUNDS DIM, MODERATE AMOUNT OF THICK HAAS SECRETIONS FROM ETT. PT PRONED AT START OF SHIFT, UNPRONED @0830. PT PARALYZED WITH NIMBEX 2.5 MCG/KG/MIN, 1/4 TOF. PT HYPERTENSIVE WITH SBP>200 AT START OF SHIFT, HYDRALAZINE ADMINISTERED PER EMAR WITHOUT SUCCESS. RESTARTED PRECEDEX AT 0.7 MCG/KG/HR, SBP CURRENTLY 133/71. PROPOFOL @ 65 MCG/KG/MIN, BIS 20-30. PT TO BE REPRONED IN 16H (0030). SEE FULL SHIFT ASSESSMENT.
[2021-07-13] MEDS ORDERED: LEVOTHYROXINE50 MC3 PO (11:36)
--- NOTE | 2021-07-13 19:03 | NUR ---
SHIFT SUMMARY NO ACUTE CHANGES THIS SHIFT. PT REMAINS INTUBATED AND SEDATED. VENT SETTINGS REMAIN UNCHANGED. PT PRONED @ 1600. PT'S BP REMAINS WNL FOLLOWING PRECEDEX BEING RESTARTED. 1200 ML URINARY OUTPUT.
--- NOTE | 2021-07-13 22:53 | NUR ---
ASSUMED PT CARE FROM JANETH FRANCIS AT 1915 PT INTUBATED, SEDATED, AND PARALYZED. VENT SETTINGS AC/VC 18, VT 400, PEEP 13, FIO2 55%. RR 18. SPO2 >90%. PROPOFOL AT 50MCG/KG/MIN AND PRECEDEX AT 0.4MCG/KG/HR. BIS READING <30; THEREFORE, TURNED PROPOFOL DOWN TO 40MCG/KG/MIN AND PRECEDEX TO 0.3MCG/KG/HR WITH GOOD EFFECT; BIS NOW 40-50. TOF 2/4 WITH NIMBEX AT 2.5MCG/KG/MIN; THEREFORE TURNED NIMBEX DOWN TO 2MCG/KG/MIN. PT REMAINS WITH NO COUGH AND NO GAG, WELL SYNCHRONISE WITH VENT. PT REMAINS IN THE PRONE POSITION WITH REPOSITIONING EVERY 2 HOURS. VHP AT GOAL OF 20MLS/HR. SALDANA IS PATENT AND DRAINING CLEAR, DARK [place] COLORED URINE TO GRAVITY. SEE SHIFT SUMMARY FOR FURTHER DETAILS.
[2021-07-14 04:01] LABS: Hematocrit 38.9 % (37.0-53.0); Hemoglobin 12.1 g/dL (13.5-17.5); Mean Corpuscular HGB 28.5 pg (26.0-34.0); Mean Corpuscular HGB Conc 31.1 g/dL (31.5-36.5); Mean Corpuscular Volume 92 fL (80-100); Mean Platelet Volume 9.5 fL (9.1-12.4); NRBC ABSOLUTE 0.04 K/mm3 (0.00-0.02); NRBC Auto 0.4 /100 WBC (0.0-0.2); Platelet Count 155 K/mm3 (150-400); RDW Coefficient Variation 14.7 % (11.7-14.2); RDW Standard Deviation 49.5 fL (35.1-46.3); Red Blood Cell Count 4.24 M/mm3 (4.30-5.90)
[2021-07-14 04:19] LABS: Anion Gap 2 mmol/L (6-16); Blood Urea Nitrogen 38 mg/dL (8-24); Bun/Creatinine Ratio 62.3 (12.0-20.0); CO2, Blood 32 mmol/L (21-32); Calcium, Blood 7.4 mg/dL (8.5-10.1); Chloride, Blood 106 mmol/L (98-108); Creatinine, Blood 0.61 mg/dL (0.60-1.20); Glomerular Filtration Rate >60 (60-); Glucose, Blood 128 mg/dL (70-99); Potassium, Blood 5.5 mmol/L (3.5-5.5); Sodium, Blood 140 mmol/L (136-145)
--- NOTE | 2021-07-14 06:23 | NUR ---
END OF SHIFT SUMMARY NO SIGNIFICANT CHANGES NOTED THIS SHIFT. VENT SETTINGS UNCHANGED WITH AC/VC 18, VT 400, PEEP 13, FIO2 55%, SPO2 >90%, RR 18. PT REMAINS UNRESPONSIVE D/T SEDATION AND PARALYTICS. PROPOFOL AT 45MCG/KG/MIN. PRECEDEX AT 0.4 MCG/KG/HR. BIS MONITOR 40-60. NIMBEX AT 3MCG/KG/MIN WITH TOF 3/4, PT IS SYNCHRONISE WITH THE VENT WITH RESP RATE 18. NO COUGH/NO GAG REFLEX. VHP INFUSING AT GOAL OF 20ML/HR. SALDANA REMAINS PATENT AND DRAINING TO GRAVITY. PT HAS REMAINED PRONE ALL NIGHT WITH REPOSITIONING EVERY 2-3 HOURS. WILL CONTINUE TO MONITOR UNTIL REPORT IS HANDED OFF TO ONCOMING RN. CALLED AND WAS GIVEN AN UPDATE
[2021-07-14 06:26] LABS: BAND PERCENT MAN 12 % (0-8); BASOPHILS PERCENT MAN 0 % (0-2); EOSINOPHILS ABSOLUTE MAN 0.11 K/mm3 (0.00-0.68); EOSINOPHILS PERCENT MAN 1 % (0-6); LYMPHOCYTES ABSOLUTE MAN 0.67 K/mm3 (0.84-5.20); LYMPHOCYTES PERCENT MAN 6 % (21-46); METAMYELOCYTE ABSOLUTE MAN 0.22 K/mm3 (0.00-0.00); METAMYELOCYTE PERCENT MAN 2 % (0-0); MONOCYTES ABSOLUTE MAN 0.78 K/mm3 (0.16-1.47); MONOCYTES PERCENT MAN 7 % (4-13); MYELOCYTE ABSOLUTE MAN 0.11 K/mm3 (0.00-0.00); MYELOCYTE PERCENT MAN 1 % (0-0); NEUTROPHILS ABSOLUTE MAN 9.29 K/mm3 (1.96-9.15); SEG NEUTROPHILS PERCENT MAN 71 % (41-73); TOTAL CELLS COUNTED 100
--- NOTE | 2021-07-14 08:45 | NUR ---
INITIAL ASSESSMENT PATIENT INTUBATED, SEDATED, AND PARALYZED. PROPOFOL AT 45 MCG/ KG/ MINUTE, PRECEDEX AT 0.4 MCG/ KG/ HOUR. PATIENT UNRESPONSIVE. BIS IN THE 40S. NIMBEX INCREASED TO 3.5 MCG/ KG/ MINUTE FOR EYEBROW TOF OF 4/4. NO COUGH, GAG, OR SWALLOW NOTED. PERIORBITAL EDEMA NOTED. SCLERA REDDENED. TEMP OF 99.5 DEGREES FAHRENHEIT. NO SIGNS OF PAIN NOTED. AC/VC 18, TV 400, PEEP 13, 55% FIO2. LUNGS DIMINISHED THROUGHOUT. MODERATE AMOUNT OF THICK, HAAS/ YELLOW SPUTUM BEING SUCTIONED FROM ETT. PATIENT IN SB, HR IN THE 50S. SBP 150S TO 160S. DOPPLER PULSES TO BILAT FEET. FEET COLD, DUSKY, AND MOTTLED. 2+ EDEMA NOTED TO BUES AND BLES. ABDOMEN MILDLY DISTENDED, SOFT, WITH HYPOACTIVE BS NOTED. MOM GIVEN. NO DATE OF LAST BM. OG IN PLACE. VHP INFUSING AT GOAL RATE OF 30 MLS/ HOUR WITH 30 ML WATER FLUSH Q4H. SALDANA DRAINING DARK [place] COLORED URINE. FISSURE NOTED TO TOP OF INTERGLUTEAL CLEFT. ABRASIONS NOTED TO BILAT SHINS. EXCORIATIONS NOTED TO BUTTOCKS CREASE. NS TKO. BED LOW. WILL CONTINUE TO MONITOR PATIENT FREQUENTLY THROUGHOUT SHIFT.
--- NOTE | 2021-07-14 10:26 | NUR ---
NIMBEX BEING TITRATED DOWN TO OFF PER DR. DIXON.
--- NOTE | 2021-07-14 12:30 | NUR ---
PATIENT HAS TEMP OF 100.4 DEGREES FAHRENHEIT. SPOKE WITH DR. DIXON AND DR. FRAGA ABOUT HYPERTENSION AND SBP AT 215. HR 60S TO 90S. STATED SHE WILL PUT MED ORDER IN. PRN HYDRALAZINE 10 MG GIVEN X 2. NIMBEX AT 1 MCG/ KG/ MINUTE. BIS 40S TO 50S. TOF 4/4. BLOOD SUGAR OF 122. NO OTHER ACUTE CHANGES TO NOTE ON AT THIS TIME. WILL CONTINUE TO MONITOR.
--- NOTE | 2021-07-14 13:20 | NUR ---
PRIMARY NURSE, HR SHARED SERVICES CONSULTANT, CLINICAL COORDINATOR AND CHARGE NURSE TO ROOM AND UNPRONED PATIENT. PATIENT TOLERATED WELL. O2 REMAINS IN 90S.
--- NOTE | 2021-07-14 16:32 | NUR ---
PATIENT HAS TEMP OF 101.1 DEGREES FAHRENHEIT. HR 50S TO 80S. SBP IN THE 160S. PATIENT REMAINS ON SAME VENT SETTINGS. RR 20S TO 30S. NIMBEX ON SB. NO OTHER ACUTE CHANGES TO NOTE ON AT THIS TIME. WILL CONTINUE TO MONITOR.
--- NOTE | 2021-07-14 18:46 | NUR ---
SHIFT SUMMARY PATIENT REMAINED INTUBATED AND SEDATED. NIMBEX PLACED ON SB THIS SHIFT PER DR. DIXON REQUEST. PATIENT REMAINS ON PRECEDEX AT 0.6 MCG/ KG/ HOUR AND PROPOFOL AT 45 MCG/ KG/ MINUTE. TMAX OF 102 DEGREES FAHRENHEIT. PATIENT REMAINS ON AC 18, TV 400, PEEP 13, 55% FIO2. LUNGS REMAINED DIMINISHED THROUGHOUT. CONTINUED TO SUCTION MODERATE AMOUNT OF THICK, HAAS/ YELLOW SPUTUM FROM ETT. PATIENT UNPRONED AT 1320, WHEN ENOUGH RESOURCES AVAILABLE TO DO SO SAFELY. HR RANGED FROM 50S TO LOW 100S. SBP RANGED FROM 130S TO 215. 40 MG PRN IV HYDRALAZINE GIVEN THIS SHIFT. 20 MG PRN IV LABETALOL GIVEN THIS SHIFT. EDEMA REMAINS TO BUES AND BLES. FEET REMAIN DUSKY, MOTTLED, COLD, WITH DOPPLER PULSES. MOM GIVEN THIS SHIFT. NO BM. TF REMAINS AT GOAL RATE. SALDANA DRAINED 1000 MLS DARK PACO COLORED URINE. NO CHANGES TO SKIN NOTED. PATIENT REPOSITIONED Q2H. NS INFUSING TKO. PATIENT HAD COMPLETE BED BATH THIS SHIFT. BLOOD SUGARS 122 AND 111. BED LOW. REPORT WILL BE GIVEN TO ASSUMING CATERING STAFF MEMBER NURSE SHORTLY.
--- NOTE | 2021-07-14 20:00 | NUR ---
UPDATE: POOR VENT COMPLIANCE/AGITATIO RESP RATE 40-45/min, TV 400s, & PT OFTEN COUGHS AGAINST ETT CAUSING HIGH PEAK PRESSURE ALARMS. PT MEDICATED W/ 4mg IV ATIVAN, PROPOFOL INC TO 65mcg/kg/min, & PRECEDEX INC TO 0.7mcg/kg/hr. AFTER APPROX 1hr, PT HAD NOT IMPROVED. CALLED ZACK & UPDATED ON PT STATUS & TO DISCUSS CONSIDERATIONS FOR SEDATION & RESTARTING NIMBEX. ORDERS RECEIVED TO INC PRECEDEX GTT TO 1.4mcg/kg/hr & MEDICATE W/ IV FENTANYL TO IMPROVE SEDATION. IF AGIATION NOT RESOLVED, CALL ZACK TO DISCUSS FENTANYL GTT.
--- NOTE | 2021-07-14 23:30 | NUR ---
UPDATE: PT CONTINUES TO BE DIAPHORETIC, TACHYPNEIC, & FEBRILE @ 103.1. PT REPOSITIONED, FiO2 INC TO 65%, ICE PACKS PLACED TO NECK, & FENTANYL GTT STARTED @ 50mcg/hr. SPOKE W/ ZACK, PLAN TO HOLD OFF PRONING PT UNTIL LEVEL OF SEDATION IS MORE ACCEPTABLE & PT IS MORE COMFORTABLE. SLOT MANAGER AWARE.
--- NOTE | 2021-07-15 02:15 | NUR ---
UPDATE: TEMP MANAGEMENT PT CONTINUES TO BE FEBRILE @ 102.1, HOWEVER IMPROVING AFTER PLACING ICE PACKS & BEDSIDE FAN. PT MEDICATED W/ 650mg TYLENOL. FENTANYL GTT INC TO 75mcg/hr & PT GIVEN PRN ATIVAN FOR CONTINUED TACHYPNEA & AGITATION. FiO2 INC TO 75% FOR SATS >92%. WILL CONTINUE TO REASSESS.
--- NOTE | 2021-07-15 04:00 | NUR ---
UPDATE: IMPROVEMENTS TO AGITATION. PT APPEARS MUCH MORE COMFORTABLE. TEMP CONTINUES TO DECREASE, NOW 101. RR 20s. @ TIMES SATS 95%; CONSISTENT BIOX READINGS DIFFICULT TO OBTAIN D/T PT's COLD DIGITS BUT AVERAGING >90%. IF PT CONTINUES ON THIS UPWARD TREND, WILL CALL DIXON & DISCUSS WHETHER OR NOT HE WISHES THE PT TO BE PRONED IF HE CONTINUES TO STABILIZE.
[2021-07-15 04:38] LABS: Hemoglobin 11.7 g/dL (13.5-17.5); Mean Corpuscular HGB 28.3 pg (26.0-34.0); Mean Corpuscular HGB Conc 31.6 g/dL (31.5-36.5); Mean Corpuscular Volume 90 fL (80-100); NRBC ABSOLUTE 0.02 K/mm3 (0.00-0.02); NRBC Auto 0.2 /100 WBC (0.0-0.2); Platelet Count 135 K/mm3 (150-400); RDW Coefficient Variation 14.4 % (11.7-14.2); RDW Standard Deviation 46.7 fL (35.1-46.3); Red Blood Cell Count 4.13 M/mm3 (4.30-5.90); White Blood Cell Count 9.95 K/mm3 (4.00-11.30)
[2021-07-15 04:56] LABS: Anion Gap 4 mmol/L (6-16); Blood Urea Nitrogen 44 mg/dL (8-24); Bun/Creatinine Ratio 51.5 (12.0-20.0); CO2, Blood 30 mmol/L (21-32); Calcium, Blood 6.9 mg/dL (8.5-10.1); Chloride, Blood 104 mmol/L (98-108); Creatinine, Blood 0.85 mg/dL (0.60-1.20); Glomerular Filtration Rate >60 (60-); Glucose, Blood 138 mg/dL (70-99); Potassium, Blood 4.9 mmol/L (3.5-5.5); Sodium, Blood 138 mmol/L (136-145)
[2021-07-15 05:38] LABS: BAND PERCENT MAN 6 % (0-8); BASOPHILS PERCENT MAN 0 % (0-2); EOSINOPHILS PERCENT MAN 0 % (0-6); LYMPHOCYTES ABSOLUTE MAN 0.59 K/mm3 (0.84-5.20); LYMPHOCYTES PERCENT MAN 6 % (21-46); MONOCYTES ABSOLUTE MAN 0.29 K/mm3 (0.16-1.47); MONOCYTES PERCENT MAN 3 % (4-13); MYELOCYTE ABSOLUTE MAN 0.29 K/mm3 (0.00-0.00); MYELOCYTE PERCENT MAN 3 % (0-0); NEUTROPHILS ABSOLUTE MAN 8.75 K/mm3 (1.96-9.15); SEG NEUTROPHILS PERCENT MAN 82 % (41-73); TOTAL CELLS COUNTED 100
--- NOTE | 2021-07-15 07:00 | NUR ---
SHIFT SUMMARY: SEE PREVIOUS RN NOTATION FOR PT PROGRESSION. PT REMAINS INTUBATED & SEDATED W/ VENT 18/400 13/100%. GTTs: FENTANYL 75mcg/hr, PROPOFOL 45mcg/kg/min, PRECEDEX 1.2mcg/kg/hr. TEMP, AGITATION & VENT TOLERANCE HAS IMPROVED INCREMENTALLY T/O THE NIGHT & PT STABILIZED @ APPROX 0400. PT THEN REQUIRED MORE FiO2 TO MAINTAIN SATS >90%. AFTER POSITION CHANGES, SUCTIONING, FiO2 NEEDS CONTINUED TO INC. PT NOW 82% ON 100% FiO2. AWAITING RT's ARRIVAL TO PRONE PT, MACHINE FEEDER RAW STOCK AWARE. WILL CONTINUE TO MONITOR UNTIL REPORT OFF TO ONCOMING RN.
--- NOTE | 2021-07-15 07:45 | NUR ---
DR. FRAGA UPDATED ON PATIENT STATUS. INFORMED THAT DR. DIXON CALLED SEVERAL TIMES ON MANAGER ACCESS DIFFICULT TO SEDATE PATIENT. INFORMED THAT MANAGER ACCESS REPORT THAT HAD TO GIVE 4 MG PRN ATIVAN MULTIPLE TIMES, STARTED FENTANYL DRIP AT 75 MCG/ HOUR AND INCREASED PRECEDEX TO FINALLY GET PATIENT SEDATED. INFORMED THAT PATIENT SEDATED THIS AM BUT THAT PATIENT SATTING 82% ON 100% FIO2 ON VENTILATOR. INFORMED THAT PATIENT PRONED FIRST THING THIS AM AND THAT O2 INCREASED TO LOW 90S. INFORMED THAT PATIENT HAD TMAX OF 103.1 DEGREES FAHRENHEIT ON MANAGER ACCESS AND THAT PATIENT RECEIVED 2 DOSES RECTAL TYLENOL. FAN AND ICE PACKS ON PATIENT. TEMP DECREASED TO 101.1 AT THIS TIME. INFORMED THAT CALCIUM 6.9 THIS AM. INFORMED THAT CONCERNED ABOUT CIRCULATION TO FEET FEET APPEAR MORE COLD AND PURPLE THAN YESTERDAY. INFORMED CAP REFILL OVER 3 SECONDS AND THAT PULSES DOPPLER. STATED FOR NO SEDATION VACATION ON PATIENT WHILE PRONED. NO OTHER ORDERS RECEIVED AT THIS TIME.
--- NOTE | 2021-07-15 08:00 | NUR ---
SHIFT ASSESSMENT PATIENT INTUBATED AND ON SEDATION. PATIENT UNRESPONSIVE. NO SIGNS OF PAIN NOTED. TEMP OF 101.3 DEGREES FAHRENHEIT. FAN AND ICE PACKS ON PATIENT. SCLERAL EDEMA NOTED. PATIENT ON 100% FIO2 AND ONLY SATTING 82% THIS MORNING WHEN CAME ON SHIFT. PATIENT PRONED SOON AFTER ARRIVING. O2 SATS CAME UP TO LOW 90S. PATIENT CURRENTLY ON AC 18, TV 400, PEEP 13 AND 100% FIO2 ON VENT. LUNGS DIMINISHED THROUGHOUT. NO SPUTUM NOTED WITH SUCTIONING. PATIENT IN SR, HR IN THE 70S. SBP 1-TEENS TO 120S. FEET COLD, MOTTLED; CAP REFILL GREATER THAN 3 SECONDS; PULSES DOPPLERED. ABDOMEN MILDLY DISTENDED, SOFT, WITH TYMPANIC BOWEL SOUNDS NOTED. VHP TF INFUSING AT GOAL RATE. DATE OF LAST BM UNKNOWN. TF RESIDUAL OF 15 MLS REINSTILLED THIS AM. SALDANA DRAINING PACO COLROED URINE WITH SEDIMENT NOTED. ABRASIONS NOTED TO SHINS. EXCORATION TO R BUTTOCKS CREASE AND FISSURE TO COCCYX. MEPILEX APPLIED TO BOTH SITES. SCROTUM REDDENED. PROPOFOL INFUSING AT 45 MCG/ KG/ MINUTE, NS TKO X 2, PRECEDEX AT 1.2 MCG/ KG/ HOUR, FENTANYL DRIP AT 50 MCG/ HOUR. BED LOW. WILL CONTINUE TO MONITOR PATIENT FREQUENTLY THROUGHOUT SHIFT.
--- NOTE | 2021-07-15 12:00 | NUR ---
PATIENT HAS TEMP OF 100.0 DEGREES FAHRENHEIT. HR IN THE 70S. SBP IN THE 140S. VENT SETTINGS AT AC 18, TV 400, PEEP 13 AND 75% FIO2. RR TEENS TO 20S. BLOOD SUGAR OF 128. NO OTHER ACUTE CHANGES TO NOTE ON AT THIS TIME. WILL CONTINUE TO MONITOR.
--- NOTE | 2021-07-15 16:30 | NUR ---
PATIENT HAS TEMP OF 99.1 DEGREES FAHRENHEIT. PATIENT IN SB, HR IN THE 50S. SBP 140S TO 150S. FIO2 DECREASED TO 70%. NO OTHER ACUTE CHANGES TO NOTE ON AT THIS TIME. WILL CONTINUE TO MONITOR.
--- NOTE | 2021-07-15 17:00 | NUR ---
DR. DIXON INFORMED THAT PATIENT'S HEELS APPEAR TO HAVE MORE PURPLE AREA. DR. DIXON CAME AND LOOKED AT PATIENT FEET. STATED TO DEMARCATE PURPLE AREA AND CONTINUE TO WATCH IF INCREASES. IF INCREASES, LET HIM KNOW. NO OTHER ORDERS RECEIVED AT THIS TIME.
--- NOTE | 2021-07-15 19:25 | NUR ---
SHIFT SUMMARY PATIENT REMAINED INTUABTED AND SEDATED. O2 SATS LOW THIS AM, THEREFORE PATIENT PRONED AND SATS CAME UP TO 90S. TMAX OF 101.3 DEGREES FAHRENHEIT AND HAS SINCE COME DOWN TO 98.7. VENT SETTINGS OF AC 18, TV 400, PEEP DECREASED FROM 13 TO 12 AND FIO2 DECREASED FROM 100% TO 55%. PATIENT SB TO SR, HR 50S TO 70S. SBP 1-TEENS TO 180S. BP TRENDED UP T/O SHIFT. FEET REMAIN COLD AND MOTTLED. DR. DIXON AWARE AND NIGHT RN TO DEMARCATE WITH SKIN MARKER AND ASSESS IF INCREASES IN SIZE. VENOUS DUPLEX PERFORMED TODAY. SCHEDULED LOVENOX DOSE INCREASED. NO BM THIS SHIFT. TF REMAINED AT GOAL RATE. SALDANA DRAINED 1100 MLS OF PACO COLORED URINE WITH SEDIMENT NOTED. NO CHANGE TO SKIN. MEPILEX APPLIED TO EXCORIATIONS. PATIENT REPOSITIONED Q2H DURING SHIFT. PROPOFOL AT 45 MCG/ KG/ MINUTE, FENTANYL AT 75 MCG/ HOUR, PRECEDEX AT 1.2 MCG/ KG/ HOUR. PATIENT PRONED AROUND 0745 THIS AM AND TO BE UNPRONED AROUND 0000. PATIENT RECIEVED COMPLETE BED BATH. PATIENT APPEARS COMFORTABLE AT THIS TIME. REPORT GIVEN TO JOSE SAP ADMINISTRATOR RN.
--- NOTE | 2021-07-15 20:26 | NUR ---
ASSUMING PT CARE: PT LAYING PRONE. INTUBATED & SEDATED. VENT: AC/VC RATE 18, TV 400, PEEP 12, FiO2 55%. GTTs: PROPOFOL 55mcg/kg/min, PRECEDEX 0.9mcg/kg/hr, FENTANYL 75mcg/hr. PT APPEARS TO BE WELL SEDATED & TOLERATING VENT. SBP 190s. PRECEDEX DEC & PROPOFOL INC D/T BRADYCARDIA IN THE low 50s. HR INC TO 60s & PRN LABETALOL GIVEN. WILL CONTINUE TO MONITOR CLOSELY & REPORT APPROPRIATE. PLAN TO REPOSITION PT SUPINE @ 0000.
--- NOTE | 2021-07-16 00:16 | NUR ---
UPDATE: SUPINATED RT, OFFSET ASSISTANT PRESS OPERATOR, & 2 RNs @ BEDSIDE. PT SUPINATED W/OUT INCIDENT. INITIAL FiO2 @ 55%, AFTER SUPINATING PT NOW REQUIRES 100% FiO2 TO MAINTAIN SATS >90%. WILL CONTINUE TO MONITOR CLOSELY & DEC FiO2 PT TOLERATES. VS OTHERWISE STABLE & PEEP REMAINS UNCHANGED @ 12.
--- NOTE | 2021-07-16 02:10 | NUR ---
UPDATE: PT RECOVERING WELL AFTER BEING PLACED SUPINE, FiO2 DEC FROM 100% TO 85% & PT IS MAINTAINING >90%. VS OTHERWISE STABLE, NO ACUTE NEG CHANGES. WILL CONTINUE TO MONITOR & REASSESS.
--- NOTE | 2021-07-16 04:00 | NUR ---
UPDATE: SPOUSE UPDATED. PT'S SPOUSE, JAKE, CALLS THIS MORNING REQUESTING AN UPDATE. GIVEN UPDATE ON PT PROGRESSION & HIS IMPROVEMENTS SINCE BEING PLACED PRONED. SHE IS AMICABLE & EXPRESSES HER GRATITUDE TO THE STAFF. SHE HAS NO REQUESTS OR QUESTIONS BUT IS ENCOURAGED TO CALL FOR ANY QUESTIONS ABOUT THE PT'S CARE.
--- NOTE | 2021-07-16 04:05 | NUR ---
UPDATE: SATS TRENDING DOWN TO 87-89%, FiO2 INC TO 90% TO MAINTAIN SATS >90%. PT TOLERATING VENT WELL, APPEARS TO BE SEDATED WELL & RESTING COMFORTABLY. , JAKE, CALLED & GIVEN UPDATE ON PT's PROGRESSION. SHE SEEMED RECEPTIVE & PLEASED W/ THE PROGRESSION.
[2021-07-16 04:33] LABS: Hematocrit 35.1 % (37.0-53.0); Hemoglobin 10.9 g/dL (13.5-17.5); Mean Corpuscular HGB 28.7 pg (26.0-34.0); Mean Corpuscular HGB Conc 31.1 g/dL (31.5-36.5); Mean Corpuscular Volume 92 fL (80-100); RDW Coefficient Variation 14.5 % (11.7-14.2); RDW Standard Deviation 49.1 fL (35.1-46.3); White Blood Cell Count 12.31 K/mm3 (4.00-11.30)
[2021-07-16 04:34] LABS: Platelet Count 121 K/mm3 (150-400)
[2021-07-16 04:59] LABS: Anion Gap 2 mmol/L (6-16); Blood Urea Nitrogen 41 mg/dL (8-24); CO2, Blood 32 mmol/L (21-32); Calcium, Blood 7.5 mg/dL (8.5-10.1); Chloride, Blood 105 mmol/L (98-108); Creatinine, Blood 0.68 mg/dL (0.60-1.20); Glomerular Filtration Rate >60 (60-); Glucose, Blood 126 mg/dL (70-99); Potassium, Blood 5.3 mmol/L (3.5-5.5); Sodium, Blood 139 mmol/L (136-145)
[2021-07-16 05:02] LABS: BAND PERCENT MAN 12 % (0-8); BASOPHILS PERCENT MAN 0 % (0-2); EOSINOPHILS ABSOLUTE MAN 0.12 K/mm3 (0.00-0.68); EOSINOPHILS PERCENT MAN 1 % (0-6); LYMPHOCYTES ABSOLUTE MAN 0.12 K/mm3 (0.84-5.20); LYMPHOCYTES PERCENT MAN 1 % (21-46); METAMYELOCYTE ABSOLUTE MAN 0.36 K/mm3 (0.00-0.00); METAMYELOCYTE PERCENT MAN 3 % (0-0); MONOCYTES ABSOLUTE MAN 0.24 K/mm3 (0.16-1.47); MONOCYTES PERCENT MAN 2 % (4-13); MYELOCYTE ABSOLUTE MAN 0.12 K/mm3 (0.00-0.00); MYELOCYTE PERCENT MAN 1 % (0-0); NEUTROPHILS ABSOLUTE MAN 11.32 K/mm3 (1.96-9.15); SEG NEUTROPHILS PERCENT MAN 80 % (41-73); TOTAL CELLS COUNTED 100
--- NOTE | 2021-07-16 06:44 | NUR ---
SHIFT SUMMARY: PT REMAINS INTUBATED & SEDATED. VENT: 18/400, 12/90%. GTTs: PROPOFOL 55mcg/kg/min, PRECEDEX 0.9mcg/kg/hr, FENTANYL 75mcg/hr. SEE PREVIOUS NOTATION FOR PT PROGRESSION. PT DID HAVE SOME DIFFICULTY MAINTAINING SATS >90% T/O SHIFT, HE HAS NOT BEEN ABLE TO TOLERATE FiO2 BELOW 90%. PT OTHERWISE STABLE. NO BM THIS SHIFT, HOWEVER ++FLATUS, MOM NOT GIVEN BUT WILL DISCUSS W/ AM RN. FEET REMAIN MOTTLED, AREAS MARKED AT BEGINNING OF SHIFT & DO NOT APPEAR TO HAVE WORSENED. WILL CONTINUE TO MONITOR UNTIL REPORT OFF TO ONCOMING RN.
--- NOTE | 2021-07-16 11:03 | NUR ---
PT PRONED WITH L SIDE UP AND POSITION OPTOMIZED FOR SAFETY. PT ONLY HAS PERIPHERAL IV IN L FA BUT ARE PATENT AND INFUSING. VENT SETTINGS NOTED AT AC 18 400 90% PEEP 12. PT DID DESAT TO UPPER 70 RANGE AND REGAINED TO UPPER 80'S AND INTO 90 RANGE IN 10-15 MIN. PT HAS SOME DISCOLORATION AND SL MOTTLING OF FEET THAT ARE MARKED AND DO NOT APPEAR TO BE EXTENDING, DOPPLER PULSES ARE PRESENT X4. IVF NOTED PER ICU FLOWSHEET.
--- NOTE | 2021-07-16 16:50 | NUR ---
1615 PT WAS UNPRONED AND PLACED IN SUPINE HIGH FOWLERS POSITION. PT TOLERATED WELL AND FIO2 DOWN TO 85% 12 PEEP A RESULT. GTTS HAVE BEEN TITRATED DOWN T/O DAY, SEE FLOWSHEET.
--- NOTE | 2021-07-16 18:23 | NUR ---
PT WAS UNPRONED EARLY AT 1600 SHOULD HAVE GONE FOR ANOTHER 8 HOURS. PT DID TOLERATE WELL AND WAS ABLE TO GO DOWN TO 85% EVEN JUST AFTER SUPINING. PRECEDEX, PROPOFOL GTTS BOTH DOWN NOTED. EXT REMAIN COLD W/O CHANGES IN MOTTLING NOTED. I/O NOTED AND VS HAVE BEEN STABLE T/O SHIFT. FAMILY WAS SPOKEN TO EARLIER IN SHIFT AND INQUIRING ABOUT TRACH IF NEEDED DOWN THE LINE. PT HAS HAD EPISODES WHERE ET SECREATIONS WERE MOD AND THICK YELLOW.
--- NOTE | 2021-07-16 21:15 | NUR ---
review of pt in rounds will get sofa score. pt kps socre is 20%
--- NOTE | 2021-07-17 03:30 | NUR ---
UPDATE: PRONED 3 RNs, RT, & UNIT ICT SUPPORT AND TEST ENGINEERS @ BEDSIDE FOR REPOSITIONING. PT PLACED PRONE W/ L LEG ANGLED & L ARM ELEVATED. PEEP UNCHANGED @ 12, FiO2 DEC TO 65% & PT TOLERATING VERY WELL W/ BIOX >92%. VS OTHERWISE STABLE. SEDATION UNCHANGED. PLAN FOR 16hrs PRONE & 8hrs SUPINE. COMMUNITY SERVICE COORDINATOR AWARE.
--- NOTE | 2021-07-17 04:00 | NUR ---
UPDATE: SPOUSE UPDATED. PT's SPOUSE, JAKE, CALLS THIS MORNING REQUESTING AN UPDATE. GIVEN UPDATE ON PT PROGRESSION & HIS IMPROVEMENTS SINCE BEING PLACED PRONE. SHE IS AMICABLE & EXPRESSES HER GRATITUDE TO THE STAFF. SHE HAS NO REQUESTS @ THIS TIME OR QUESTIONS TO RELAY TO RICK; ENCOURAGED TO CALL FOR ANY QUESTIONS ABOUT THE PT's CARE.
--- NOTE | 2021-07-17 06:30 | NUR ---
SHIFT SUMMARY: PT REMAINS INTUBATED & SEDATED. VENT: AC 18/400, 12/65%. GTTs: PROPOFOL 60mcg/kg/min, PRECEDEX 0.4mcg/kg/hr, FENTANYL 75mcg/kg/hr. PT HAS IMPROVED T/O THE NIGHT. PRONE @ 0300 & HAS SINCE BEING TOLERATING WELL. SEE PREVIOUS NOTATION FOR PT PROGRESSION. MOTTLING TO FEET HAS MUCH IMPROVED & APPEARS GROSSLY RESOLVED, COOL TO THE TOUCH, PEDAL PULSES REMAIN OBTAINABLE ONLY W/ DOPPLER BUT UNCHANGED. EYES MEDICATED W/ LACRI-LUBE & TAPED SHUT. REDNESS TO R SCLERA APPEARS TO HAVE WORSENED FROM PREVIOUS ASSESSMENT. WILL DISCUSS W/ AM RN & PLAN FOR AM LABS.
--- NOTE | 2021-07-17 08:20 | NUR ---
ASSUMED CARE REPORT RECIEVED. PT IS LAYING IN BED PRONE. PT IS INTUBATED AND SEDATED. VENT SETTINGS AC 18, TV 400, PEEP 12, FIO2 70%. PT WITH MODERATE AMOUNT OF THICK SECRETIONS WITH ETT SUCTION. PT SEDATED WITH PROPOFOL AT 60 MCG/KG/MIN, PRECEDEX 0.4 MCG/KG/HR, AND FENTANYL FABRICATION SUPERVISOR 75 MCG/HR. PT WITH COUGH, BUT NO PURPOSEFUL MOVEMENTS NOTED AT THIS TIME. PICC TO DIXON C/D/I. OGT IN PLACE WITH TF INFUSING AT GOAL RATE. PT WITH 200 ML RESIDUALS THIS AM. SALDANA TEMP PROBE IN PLACE WITH CLEAR YELLOW OUTPUT NOTED. SBW RESTRAINTS IN PLACE. VITAL SIGNS STABLE. WILL CONTINUE TO MONITOR.
[2021-07-17 10:11] LABS: Hematocrit 36.6 % (37.0-53.0); Hemoglobin 11.6 g/dL (13.5-17.5); Mean Corpuscular HGB 28.9 pg (26.0-34.0); Mean Corpuscular HGB Conc 31.7 g/dL (31.5-36.5); Mean Corpuscular Volume 91 fL (80-100); Platelet Count 146 K/mm3 (150-400); RDW Standard Deviation 47.4 fL (35.1-46.3); Red Blood Cell Count 4.01 M/mm3 (4.30-5.90); White Blood Cell Count 16.91 K/mm3 (4.00-11.30)
[2021-07-17 10:46] LABS: Anion Gap -1 mmol/L (6-16); Blood Urea Nitrogen 40 mg/dL (8-24); CO2, Blood 34 mmol/L (21-32); Calcium, Blood 8.2 mg/dL (8.5-10.1); Chloride, Blood 103 mmol/L (98-108); Creatinine, Blood 0.71 mg/dL (0.60-1.20); Glomerular Filtration Rate >60 (60-); Glucose, Blood 133 mg/dL (70-99); Potassium, Blood 4.6 mmol/L (3.5-5.5); Sodium, Blood 136 mmol/L (136-145)
[2021-07-17 10:56] LABS: BAND PERCENT MAN 4 % (0-8); BASOPHILS PERCENT MAN 0 % (0-2); EOSINOPHILS PERCENT MAN 0 % (0-6); LYMPHOCYTES ABSOLUTE MAN 0.16 K/mm3 (0.84-5.20); LYMPHOCYTES PERCENT MAN 1 % (21-46); METAMYELOCYTE ABSOLUTE MAN 0.16 K/mm3 (0.00-0.00); METAMYELOCYTE PERCENT MAN 1 % (0-0); MONOCYTES ABSOLUTE MAN 0.67 K/mm3 (0.16-1.47); MONOCYTES PERCENT MAN 4 % (4-13); MYELOCYTE PERCENT MAN 3 % (0-0); NEUTROPHILS ABSOLUTE MAN 15.38 K/mm3 (1.96-9.15); SEG NEUTROPHILS PERCENT MAN 87 % (41-73); TOTAL CELLS COUNTED 100
--- NOTE | 2021-07-17 17:40 | NUR ---
SHIFT SUMMARY NO ACUTE CHANGES THIS SHIFT. PT REMAINS INTUBATED AND SEDATED. VENT SETTINGS AC 18, TV 400, PEEP 12, FIO2 70%. TURNED SUPINE AROUND 1200 TODAY AND SPO2 HAS MAINTAINED 89-92%. PT WITH LARGE AMOUNT OF ETT SECRETIONS. PT REMAINS SEDATED WITH PROPOFOL AT 60 MCG/KG/MIN, PRECEDEX 0.4 MCG/KG/HR, AND FENTANYL THERAPEUTIC RECREATION ASSISTANT 75 MCG/KG/HR. PICC TO DIXON REMAINS C/D/I. OGT IN PLACE WITH TF INFUSING AT GOAL RATE. PT WITH HIGH RESIDUALS THROUGHOUT THE SHIFT. PT WITH NO BM DESPITE SUPPOSITORY AND PT MEDS. SALDANA TEMP PROBE REMAINS IN PLACE WITH PACO COLORED CLOUDY OUTPUT NOTED. SBW RESTRAINTS REMAINS IN PLACE. VITAL SIGNS STABLE. PT SON UPDATED VIA PHONE. WILL CONTINUE TO MONITOR AND REPORT OFF TO ONCOMING RN.
--- NOTE | 2021-07-17 19:56 | NUR ---
ASSUMPTION OF CARE RECEIVED REPORT FROM JANETH HOLLOWAY AT 1900. PT INTUBATED AND SEDATED. PROPOFOL @ 60MCG/KG/HR, PRECEDEX @ 0.4MCG/KG/HR, FENTANYL @ 75MCG/HR. PT UNRESPONSIVE. VENT AT AC:18/450/12/70%, SATS IN LOW 90'S. REPOSITIONED PT TO PRONE AT 1930, PT TOLERATED WELL. BEDBATH COMPLETE. HR, SR IN 70'S, BP STABLE, AFEBRILE. TEMP SALDANA PATENT AND DRAINING CLEAR/YELLOW URINE. GENERALIZED WEEPING EDEMA THROUGHOUT. BILATERAL LOWER EXTREMITIES ARE COOL TO TOUCH. TF AT GOAL OF 20ML/HR WITH Q4H 30ML FLUSHES. MODERATE ABDOMINAL DISTENTION. WILL REVIEW ORDERS, CONTINUE TO MONITOR AND TREAT PRESCRIBED.
[2021-07-18 03:20] LABS: PCO2 Arterial 52.9 mmHg (35-45); pH Blood Arterial 7.43 (7.35-7.45)
[2021-07-18 04:47] LABS: Source, Urine Catheter
[2021-07-18 04:49] LABS: BASOPHILS ABSOLUTE AUTO 0.09 K/mm3 (0.00-0.23); BASOPHILS PERCENT AUTO 1 % (0-2); Bilirubin, Urine Neg (Neg); Blood, Urine 3+ (Neg); EOSINOPHILS ABSOLUTE AUTO 0.12 K/mm3 (0.00-0.68); EOSINOPHILS PERCENT AUTO 1 % (0-6); Glucose Qualitative, Urine Neg (Neg); Hematocrit 36.7 % (37.0-53.0); Hemoglobin 11.8 g/dL (13.5-17.5); IMMATURE GRAN ABSOLUTE AUTO 1.63 K/mm3 (0.00-0.10); IMMATURE GRAN PERCENT AUTO 9 % (0-1); Ketones, Urine Neg (Neg); LYMPHOCYTES ABSOLUTE AUTO 0.48 K/mm3 (0.84-5.20); LYMPHOCYTES PERCENT AUTO 3 % (21-46); Leukocyte Esterase, Urine 1+ (Neg); MONOCYTES ABSOLUTE AUTO 0.44 K/mm3 (0.16-1.47); MONOCYTES PERCENT AUTO 2 % (4-13); Mean Corpuscular HGB 28.7 pg (26.0-34.0); Mean Corpuscular HGB Conc 32.2 g/dL (31.5-36.5); Mean Corpuscular Volume 89 fL (80-100); Mean Platelet Volume 9.6 fL (9.1-12.4); NEUTROPHILS ABSOLUTE AUTO 15.42 K/mm3 (1.96-9.15); NEUTROPHILS PERCENT AUTO 85 % (41-73); NRBC ABSOLUTE 0.02 K/mm3 (0.00-0.02); NRBC Auto 0.1 /100 WBC (0.0-0.2); Nitrite, Urine Neg (Neg); Platelet Count 165 K/mm3 (150-400); Protein, Urine 2+ (Neg); RDW Coefficient Variation 14.3 % (11.7-14.2); RDW Standard Deviation 46.1 fL (35.1-46.3); Red Blood Cell Count 4.11 M/mm3 (4.30-5.90); Urobilinogen, Urine NORM (Normal); White Blood Cell Count 18.18 K/mm3 (4.00-11.30)
[2021-07-18 04:56] LABS: Appearance, Urine Clear (Clear); Color, Urine Yellow (P-Yellow)
[2021-07-18 04:57] LABS: Bacteria Few /hpf; Squamous Epithelial Cells Not Seen /hpf (Few)
[2021-07-18 04:58] LABS: Amorphous Light (0-Heavy)
[2021-07-18 05:05] LABS: Anion Gap 4 mmol/L (6-16); Blood Urea Nitrogen 36 mg/dL (8-24); Bun/Creatinine Ratio 59.4 (12.0-20.0); CO2, Blood 33 mmol/L (21-32); Calcium, Blood 7.1 mg/dL (8.5-10.1); Chloride, Blood 102 mmol/L (98-108); Creatinine, Blood 0.61 mg/dL (0.60-1.20); Glomerular Filtration Rate >60 (60-); Glucose, Blood 106 mg/dL (70-99); Magnesium, Blood 2.5 mg/dL (1.6-2.4); Sodium, Blood 139 mmol/L (136-145)
[2021-07-18 05:10] LABS: BAND PERCENT MAN 3 % (0-8); BASOPHILS PERCENT MAN 0 % (0-2); EOSINOPHILS PERCENT MAN 0 % (0-6); LYMPHOCYTES ABSOLUTE MAN 0.72 K/mm3 (0.84-5.20); LYMPHOCYTES PERCENT MAN 4 % (21-46); METAMYELOCYTE ABSOLUTE MAN 0.54 K/mm3 (0.00-0.00); METAMYELOCYTE PERCENT MAN 3 % (0-0); MONOCYTES ABSOLUTE MAN 0.36 K/mm3 (0.16-1.47); MONOCYTES PERCENT MAN 2 % (4-13); NEUTROPHILS ABSOLUTE MAN 16.54 K/mm3 (1.96-9.15); SEG NEUTROPHILS PERCENT MAN 88 % (41-73); TOTAL CELLS COUNTED 100
--- NOTE | 2021-07-18 06:10 | NUR ---
PT REMAINS PRONED, INTUBATED AND SEDATED. VENT AC: 18/400/12/85%, FIO2 INCREASED THROUGHOUT THE NIGHT DUE TO SATS IN 86-87%. NO PURPOSEFUL MOVEMENTS NOTED THROUGHOUT SHIFT. PT FEBRILE, TMAX 102.4, PRN TYLENOL SUPPOSITORY GIVEN, TEMP NOW AT 100.2. DR. CABRERA NOTIFIED, SPUTUM AND URINE CULTURES OBTAINED. VANCO AND ZOSYN ADDED AND GIVEN CHARTED. HR IN 90-100'S, BLOOD PRESSURES ELEVATED IN 200-170'S SYSTOLIC, PRN HYDRALAZINE AND LABETALOL GIVEN, NORVASC ADDED AND GIVEN CHARTED. WAS UPDATED REGARDING PT'S CURRENT STATUS. WILL GIVE REPORT TO ONCOMING RN.
--- NOTE | 2021-07-18 07:45 | NUR ---
ASSUMED CARE REPORT RECIEVED. PT IS INTUBATED, SEDATED, AND PRONE. VENT SETTING AC 18, TV 400, PEEP 12, FIO2 85%. PT WITH MODERATE ETT SECRETIONS. PT SEDATED WITH PROPOFOL, FENTANYL FIELD ATTENDANT, AND PRECEDEX. SEE FLOWSHEET FOR TITRATIONS. PICC TO DIXON C/D/I. NS INFUSING TKO. OGT IN PLACE WITH TF AT GOAL RATE. MINIMAL RESIDUALS THIS AM. SALDANA TEMP PROBE IN PLACE WITH PACO/CLEAR YELLOW OUTPUT NOTED. VITAL SIGNS STABLE. SBW RESTRAINTS IN PLACE. WILL CONTINUE TO MONITOR.
--- NOTE | 2021-07-18 16:50 | NUR ---
SHIFT SUMMARY NO ACUTE CHANGES THIS SHIFT. PT REMAINS INTUBATED AND SEDATED. VENT SETTINGS AC 18, TV 400, PEEP 12, FIO2 75%. PT UNPRONED AROUND NOON, HAS SINCE REMAINED STABLE WITH O2 REQUIREMENTS. PT REMAINS SEDATED WITH PROPOFOL, PRECEDEX, AND FENTANYL TRUCK DRIVER INSTRUCTOR. SEE FLOWSHEET FOR TITRATIONS. PT WITH NO PURPOSFUL MOVEMENT. COUGH AND GAG PRESENT. OGT IN PLACE WITH TF INFUSING AT GOAL RATE. PICC TO DIXON REMAINS C/D/I. SALDANA TEMP PROBE REMAINS IN PLACE WITH PACO/YELLOW OUTPUT NOTED. SBW RESTRAINTS IN PLACE. VITAL SIGNS STABLE. WILL CONTINUE TO MONITOR AND REPORT OFF TO ONCOMING RN.
--- NOTE | 2021-07-18 18:06 | NUR ---
review of pt in rounds intesivist has been speaking with family about care, prognosis and code status . Will follow for support and assist with plan of care after extubation. pt kps score is 20%
--- NOTE | 2021-07-18 21:00 | NUR ---
ASSUMPTION OF CARE RECEIVED REPORT FROM JANETH HOLLOWAY @ 1910. PT REMAINS INTUBATED AND SEDATED. PROPOFOL @ 55MCG/KG/MIN, PRECEDEX @ 0.4 MCG/KG/HR, FENTANYL @ 75MCG/HR. PT GRIMACING WITH ORAL CARE AND SQUEEZES EYES SHUT, BUT UNABLE TO FOLLOW COMMANDS. VENT AC 18/400/12/75%. SATS IN LOW 90'S. VSS, AND AFEBRILE. EDEMA +2 BILATERAL LOWER AND UPPER EXTREMITIES. ABDOMEN MODERATELY DISTENDED, OG RESIDUALS 350ML, BILIOUS FLUID. TEMP SALDANA PATENT DRAINING TO GRAVITY, PACO/CLEAR URINE. BED BATH COMPLETE. PT PRONED AT 2015, TOLERATED WELL. ORDERS REVIEWED AND WILL TREAT PRESCRIBED.
--- NOTE | 2021-07-18 21:24 | NUR ---
OXYGENATION PATIENT WITH 02 SATS AT 83-84%. NOTIFIED GOLD RT AND INCREASED FIO2 TO 85%. 02 SATS AT 90% AT THIS TIME. SUCTION WAS ALSO PROVIDED AT A 100% FIO2 WITH NO SECRETIONS NOTED. CONTINUING TO MONITOR.
[2021-07-19 03:57] LABS: BASOPHILS ABSOLUTE AUTO 0.05 K/mm3 (0.00-0.23); BASOPHILS PERCENT AUTO 0 % (0-2); EOSINOPHILS ABSOLUTE AUTO 0.11 K/mm3 (0.00-0.68); EOSINOPHILS PERCENT AUTO 1 % (0-6); Hematocrit 33.3 % (37.0-53.0); Hemoglobin 10.9 g/dL (13.5-17.5); IMMATURE GRAN ABSOLUTE AUTO 0.81 K/mm3 (0.00-0.10); IMMATURE GRAN PERCENT AUTO 5 % (0-1); LYMPHOCYTES ABSOLUTE AUTO 0.78 K/mm3 (0.84-5.20); LYMPHOCYTES PERCENT AUTO 5 % (21-46); MONOCYTES ABSOLUTE AUTO 0.53 K/mm3 (0.16-1.47); MONOCYTES PERCENT AUTO 3 % (4-13); Mean Corpuscular HGB 29.4 pg (26.0-34.0); Mean Corpuscular HGB Conc 32.7 g/dL (31.5-36.5); Mean Corpuscular Volume 90 fL (80-100); Mean Platelet Volume 9.7 fL (9.1-12.4); NEUTROPHILS ABSOLUTE AUTO 14.11 K/mm3 (1.96-9.15); NEUTROPHILS PERCENT AUTO 86 % (41-73); Platelet Count 159 K/mm3 (150-400); RDW Coefficient Variation 14.3 % (11.7-14.2); RDW Standard Deviation 46.5 fL (35.1-46.3); Red Blood Cell Count 3.71 M/mm3 (4.30-5.90); White Blood Cell Count 16.39 K/mm3 (4.00-11.30)
[2021-07-19 04:13] LABS: Anion Gap 2 mmol/L (6-16); Blood Urea Nitrogen 40 mg/dL (8-24); Bun/Creatinine Ratio 63.2 (12.0-20.0); CO2, Blood 34 mmol/L (21-32); Calcium, Blood 7.8 mg/dL (8.5-10.1); Chloride, Blood 102 mmol/L (98-108); Creatinine, Blood 0.63 mg/dL (0.60-1.20); Glomerular Filtration Rate >60 (60-); Glucose, Blood 139 mg/dL (70-99); Potassium, Blood 3.9 mmol/L (3.5-5.5); Sodium, Blood 138 mmol/L (136-145)
--- NOTE | 2021-07-19 04:48 | NUR ---
PT'S OXYGEN SATS DROPPED TO MID 80'S, SUCTIONED AND REPOSITIONED PATIENT AND SATS REMAINED 85-86%. RT INCREASED FI02 TO 100%, SATS REMAINED 85-86% FOR ABOUT [address] CALL PLACED TO DR. CABRERA @ 2728, AND NEW ORDERS GIVEN TO TITRATE PEEP TO 14, MAY INCREASE TO 16 IF INEFFECTIVE. RT NOTIFIED. WILL CONTINUE TO MONITOR.
--- NOTE | 2021-07-19 06:22 | NUR ---
PT REMAINS INTUBATED AND SEDATED. PRONED AT 1999. VENT AC: 18/400/12/75%. SATS >92%. AT 2130, SATS WERE 89-90%, FI02 INCREASED TO 85%, SATS >92%. AT 0345 RT INCREASED FI02 TO 100% TO ATTEMPT TO IMPROVE SATS OF 85-86%, HOWEVER NO IMPROVEMENT NOTED. CALL PLACE TO DR. CABRERA AT 0439 AND PEEP INCREASED TO 14 WITH NO EFFECT, RT INCREASED TO 16 PER ORDER AND PT SATTING AT 90%. PT FEBRILE AT 99.7, COOL AND DIAPHORETIC. TITRATING SEDATION PER PT'S COMFORT LEVEL, PRECEDEX TITRATED DOWN TO 0.3, PROPOFOL @55MCG/KG/MIN, FENTANYL @75MCG/HR. NO PURPOSEFUL MOVEMENTS, BUT HAS GAG/COUGH RESPONSE WITH REPOSITIONING. BP ELEVATED SYSTOLIC 210-190'S, PRN HYDRALAZINE AND LABETALOL GIVEN ONCE, BP NOW 140'S. RESIDUALS CHECKED Q4 CHARTED, NO BOWEL MOVEMENT. TEMP SALDANA PATENT, DRAINING RED/PACO URINE, SEDIMENT NOTED. UPDATED THIS MORNING. WILL GIVE REPORT TO ONCOMING RN.
--- NOTE | 2021-07-19 07:45 | NUR ---
ASSUMED CARE REPORT RECIEVED. PT IS INTUBATED AND SEDATED. VENT SETTINGS AC 18, TV 400, PEEP 16, FIO2 100%. PT SEDATED WITH PROPOFOL, PRECEDEX, AND FENTANYL SHOE FOLDER. SEE FLOWSHEET FOR TITRATIONS. OGT IN PLACE WITH TF INFUSING AT GOAL. PICC TO DIXON C/D/I. SALDANA TEMP PROBE IN PLACE WITH YELLOW/PACO OUTPUT NOTED. VITAL SIGNS STABLE AT THIS TIME. SBW RESTRAINTS IN PLACE. PT PRONE AT THIS TIME. WILL CONTINUE TO MONITOR.
[2021-07-19 12:28] LABS: Vancomycin, Trough 15.2 ug/mL (5.0-10.0)
--- NOTE | 2021-07-19 17:46 | NUR ---
SHIFT SUMMARY NO ACUTE CHANGES THIS SHIFT. PT REMAINS INTUBATED AND SEDATED. VENT SETTINGS AC 18, TV 400, PEEP 16, FIO2 TITRATED DOWN TO 80%. PT WITH MINIMAL SECRETIONS THIS SHIFT. PT UNPRONED AROUND 1200. PT HAS TOLERATED BEING SUPINE WELL. PT REMAINS SEDATED WITH PROPOFOL AT 55 MCG/KG/MIN, PRECEDEX 0.3 MCG/KG/MIN, AND FENTANYL DIRECTOR MARKETING COMMUNICATIONS 75 MCG/HR. PICC TO DIXON C/D/I. NS INFUSING TKO. PT WITH OCCASIONAL COUGH AND FURROWS BROW TO NOXIOUS STIMULI. PT DOES NOT WITHDRAW EXTREMITIES TO NOXIOUS STIMULI. OGT IN PLACE WITH TF INFUSING AT GOAL RATE. SALDANA TEMP PROBE REMAINS INPLACE WITH DARK YELLOW URINE OUTPUT NOTED. SBW RESTRAINTS REMAIN IN PLACE. VITAL SIGNS STABLE THIS SHIFT. WILL CONTINUE TO MONITOR AND REPORT OFF TO ONCOMING RN.
--- NOTE | 2021-07-19 20:58 | NUR ---
UPDATE: PRONE. RT @ HOB & RN, LINOTYPER, & PTx2 TO ASSIST. FiO2 INC 100% & REPOSITIONED PRONE W/ L ARM ELEVATED & L LEG ANGLED & RESTING ON A PILLOW. EYES LUBRICATED W/ LACRI-LUBE & TAPED SHUT. HEAD RESTING ON C-SHAPED PILLOW. PT TOLERATED PROCESS EXTREMELY WELL, LOWEST SATS 93%. FiO2 DEC TO 80% & PT IS MAINTAINING @ 96%.
[2021-07-20 04:51] LABS: BASOPHILS ABSOLUTE AUTO 0.06 K/mm3 (0.00-0.23); BASOPHILS PERCENT AUTO 0 % (0-2); EOSINOPHILS ABSOLUTE AUTO 0.13 K/mm3 (0.00-0.68); EOSINOPHILS PERCENT AUTO 1 % (0-6); Hematocrit 35.3 % (37.0-53.0); IMMATURE GRAN PERCENT AUTO 4 % (0-1); LYMPHOCYTES ABSOLUTE AUTO 0.69 K/mm3 (0.84-5.20); LYMPHOCYTES PERCENT AUTO 4 % (21-46); MONOCYTES ABSOLUTE AUTO 0.54 K/mm3 (0.16-1.47); MONOCYTES PERCENT AUTO 3 % (4-13); Mean Corpuscular HGB 28.6 pg (26.0-34.0); Mean Corpuscular HGB Conc 31.2 g/dL (31.5-36.5); Mean Corpuscular Volume 92 fL (80-100); NEUTROPHILS ABSOLUTE AUTO 14.66 K/mm3 (1.96-9.15); NEUTROPHILS PERCENT AUTO 87 % (41-73); Platelet Count 185 K/mm3 (150-400); RDW Coefficient Variation 14.4 % (11.7-14.2); RDW Standard Deviation 48.3 fL (35.1-46.3); Red Blood Cell Count 3.84 M/mm3 (4.30-5.90); White Blood Cell Count 16.78 K/mm3 (4.00-11.30)
[2021-07-20 05:28] LABS: Anion Gap 3 mmol/L (6-16); Blood Urea Nitrogen 38 mg/dL (8-24); Bun/Creatinine Ratio 61.6 (12.0-20.0); CO2, Blood 36 mmol/L (21-32); Calcium, Blood 8.1 mg/dL (8.5-10.1); Chloride, Blood 102 mmol/L (98-108); Creatinine, Blood 0.62 mg/dL (0.60-1.20); Glomerular Filtration Rate >60 (60-); Glucose, Blood 141 mg/dL (70-99); Magnesium, Blood 2.9 mg/dL (1.6-2.4); Phosphorus, Blood 2.2 mg/dL (2.5-4.9); Potassium, Blood 3.9 mmol/L (3.5-5.5); Sodium, Blood 141 mmol/L (136-145)
[2021-07-20 05:40] LABS: PCO2 Arterial 64.8 mmHg (35-45); PO2 Arterial 61.9 mmHg (80-100); pH Blood Arterial 7.39 (7.35-7.45)
--- NOTE | 2021-07-20 06:46 | NUR ---
SHIFT SUMMARY: PT REMAINS INTUBATED & SEDATED. VENT: AC 18/400, 16/85%. GTTs: PRECEDEX 0.5mcG/kG/hr, PROPOFOL 50mcg/kg/min, FENTANYL 75mcg/hr. PT REMAINS PRONE. AT TIMES PT BECOMES AGITATED & BEGINS TO DESAT INTO THE LOW 80s. AFTER PRN ATIVAN, TOLERANCE APPEARED TO IMPROVE & FiO2 DEC FROM 100% TO 85%. NO BM THIS SHIFT, DESPITE MOM GIVEN. 950cc URINE OUPUT. NO ACUTE NEG CHANGES. WILL CONTINUE TO TO MONITOR UNTIL REPORT OFF TO ONCOMING RN.
--- NOTE | 2021-07-20 13:46 | NUR ---
REASSESSMENT PT REMAINS INTUBATED AND SEDATED. HIS LUNGS ARE CLEAR, MODERATE AMT OF THICK, WHITE SECRETIONS SUCTIONED OUT THIS MORNING. PT WAS PRONE UNTIIL NOON, NOW SUPINE. PT DESATURATED TO 88% FOR ABOUT 5 MINUTES, BUT RECOVERED WITHOUT ANY VENT CHANGES. SB TO SR WITH RATE IN THE 50S AND 60S. BP MEDS HELD THIS MORNING FOR SBP IN THE 90S. TOLERATING TUBE FEED. SUPPOSITORY GIVEN FOR BM SINCE IT HAD BEEN MANY DAYS AND PT HAD SMALL LOOSE BM. SALDANA WITH 900ML OF CL, DARK YELLOW URINE OUT THIS MORNING. CONTINUE TO MONITOR.
--- NOTE | 2021-07-20 18:09 | NUR ---
SHIFT SUMMARY PT REMAINS INTUBATED AND SEDATED. HE STARTED HAVING BMS THIS AFTERNOON, SMALL TO MEDIUM, LOOSE. TOLERATING TUBE FEED. LUNGS ARE CLEAR, DIM IN BASES. UNABLE TO TITRATE VENT DOWN TODAY EXCEPT FOR PEEP TO [address] DIXON. AFTER UNPRONING PT IT WAS NOTICED THAT THE WHITE OF PT'S R EYE IS DARK RED LIKE IT IS FULL OF BLOOD. IRIS AND PUPIL ARE UNCHANGED. DR. DIXON AWARE. PT'S FEET REMAIN COLD AND PULSES FOUND WITH DOPPLER. SPOKE WITH PT'S SON AND PROVIDED HIM WITH UPDATE. CONTINUING TO MONITOR.
[2021-07-21 03:52] LABS: BASOPHILS ABSOLUTE AUTO 0.05 K/mm3 (0.00-0.23); BASOPHILS PERCENT AUTO 0 % (0-2); EOSINOPHILS ABSOLUTE AUTO 0.09 K/mm3 (0.00-0.68); EOSINOPHILS PERCENT AUTO 1 % (0-6); Hemoglobin 10.9 g/dL (13.5-17.5); IMMATURE GRAN ABSOLUTE AUTO 0.39 K/mm3 (0.00-0.10); IMMATURE GRAN PERCENT AUTO 3 % (0-1); LYMPHOCYTES ABSOLUTE AUTO 0.72 K/mm3 (0.84-5.20); LYMPHOCYTES PERCENT AUTO 5 % (21-46); MONOCYTES ABSOLUTE AUTO 0.63 K/mm3 (0.16-1.47); MONOCYTES PERCENT AUTO 4 % (4-13); Mean Corpuscular HGB 28.7 pg (26.0-34.0); Mean Corpuscular HGB Conc 31.1 g/dL (31.5-36.5); Mean Corpuscular Volume 92 fL (80-100); Mean Platelet Volume 9.8 fL (9.1-12.4); NEUTROPHILS ABSOLUTE AUTO 13.13 K/mm3 (1.96-9.15); NEUTROPHILS PERCENT AUTO 88 % (41-73); Platelet Count 184 K/mm3 (150-400); RDW Coefficient Variation 14.4 % (11.7-14.2); RDW Standard Deviation 48.5 fL (35.1-46.3); White Blood Cell Count 15.01 K/mm3 (4.00-11.30)
[2021-07-21 04:08] LABS: Anion Gap 2 mmol/L (6-16); Blood Urea Nitrogen 34 mg/dL (8-24); Bun/Creatinine Ratio 50.9 (12.0-20.0); CO2, Blood 38 mmol/L (21-32); Calcium, Blood 8.3 mg/dL (8.5-10.1); Chloride, Blood 102 mmol/L (98-108); Creatinine, Blood 0.67 mg/dL (0.60-1.20); Glomerular Filtration Rate >60 (60-); Glucose, Blood 112 mg/dL (70-99); Magnesium, Blood 3.2 mg/dL (1.6-2.4); Phosphorus, Blood 3.1 mg/dL (2.5-4.9); Sodium, Blood 142 mmol/L (136-145)
--- NOTE | 2021-07-21 07:16 | NUR ---
END OF SHIFT SUMMARY: PATIENT PRONED AT 1999 AND NO DESAT ISSUES WITH THAT. PATIENT GOT SHIKHA SOON AFTER IN THE MID 30S SO PRECEDEX WAS TEMPORARILY TURNED OFF. NO HYPOTENSION NOTED. VENT SETTINGS AC 18/400/16/100%. MINIMAL SECRETIONS FROM ETT. SB/SR. BP STABLE. PRECEDEX RESTARTED THIS MORNING AND NO HR ISSUES. PROPOFOL, PRECEDEX, AND A FENTANYL CONSUMER RELATIONS COMPLAINT CLERK ARE INFUSING. GOOD URINE OUTPUT WHICH IS CLEAR/YELLOW. TRACH/PEG IN DISCUSSION FOR NEXT WEEK
--- NOTE | 2021-07-21 08:50 | NUR ---
ASSESSMENT- PT SEDATED WTIH PROPOFOL AT 55 MCG/KG/MIN AND PRECEDEX AT 0.4 MCG/KG/HR. FENTANYL GREASER HELPER AT 75 MCG/HR. NO S/S PAIN. ORALLY INTUBATED, TUBE SECURE. TOLERATING VENT SETTINGS. LUNGS CLEAR THROUGHOUT. SUCTX SCANT SECRETIONS. APICAL REGULAR 80'S. BP ELEVATED. ABDOMEN LARGE, TUBE FEEDING VIA OGT-HIGH RESIDUAL REPLACED AND TF ON HOLD. UO VIA SALDANA ADEQUATE. PICC LINE INTACT. NS TKO. PRONE POSITION, REPOSITIONED WITH MULTIPLE STAFF. ENHANCED PRECAUTIONS IN EFFECT.
--- NOTE | 2021-07-21 11:04 | NUR ---
PEEP INCREASED TO [address] AYALA
--- NOTE | 2021-07-21 11:56 | NUR ---
DR. AYALA AT BEDSIDE, VENT ADJUSTMENTS. CHANGED TO PRESSURE VENTILATION, AC/PC RATE 24 PEEP 20 FI02 90% WITH SATURATIONS 88-89% AND TIDAL VOLUMES 300'S. NSR. REVERSE [place] PRONE POSITION
[2021-07-21 12:55] LABS: Vancomycin, Trough 20.2 ug/mL (5.0-10.0)
--- NOTE | 2021-07-21 16:14 | NUR ---
PEAK AIRWAY PRESSURES IMPROVED. SEDATED, PRECEDEX DECREASED TO 0.5 MCG/KG/HR.
--- NOTE | 2021-07-21 18:00 | NUR ---
TOLERATING VENT 100% PEEP AT 20. REMAINS SEDATED WITH PROPOFOL AT 55 MCG/KG/MIN, PRECEDEX AT 0.5 MCG/KG/HR, FENTANYL AT 75 MCG/HR. SINUS SHIKHA, BP STABLE. TUBE FEEDS ON HOLD FOR HIGH RESIDUAL. UO ADEQUATE.
[2021-07-22 04:12] LABS: BASOPHILS ABSOLUTE AUTO 0.05 K/mm3 (0.00-0.23); BASOPHILS PERCENT AUTO 0 % (0-2); EOSINOPHILS ABSOLUTE AUTO 0.15 K/mm3 (0.00-0.68); EOSINOPHILS PERCENT AUTO 1 % (0-6); Hematocrit 34.6 % (37.0-53.0); Hemoglobin 10.8 g/dL (13.5-17.5); IMMATURE GRAN PERCENT AUTO 3 % (0-1); LYMPHOCYTES ABSOLUTE AUTO 0.68 K/mm3 (0.84-5.20); LYMPHOCYTES PERCENT AUTO 5 % (21-46); MONOCYTES ABSOLUTE AUTO 0.59 K/mm3 (0.16-1.47); MONOCYTES PERCENT AUTO 4 % (4-13); Mean Corpuscular HGB 28.8 pg (26.0-34.0); Mean Corpuscular HGB Conc 31.2 g/dL (31.5-36.5); Mean Corpuscular Volume 92 fL (80-100); Mean Platelet Volume 9.7 fL (9.1-12.4); NEUTROPHILS ABSOLUTE AUTO 12.36 K/mm3 (1.96-9.15); NEUTROPHILS PERCENT AUTO 87 % (41-73); Platelet Count 208 K/mm3 (150-400); RDW Coefficient Variation 14.2 % (11.7-14.2); RDW Standard Deviation 48.4 fL (35.1-46.3); Red Blood Cell Count 3.75 M/mm3 (4.30-5.90); White Blood Cell Count 14.23 K/mm3 (4.00-11.30)
[2021-07-22 04:27] LABS: Albumin, Blood 1.5 g/dL (3.4-5.0); Anion Gap 2 mmol/L (6-16); Blood Urea Nitrogen 34 mg/dL (8-24); Bun/Creatinine Ratio 55.1 (12.0-20.0); CO2, Blood 38 mmol/L (21-32); Chloride, Blood 104 mmol/L (98-108); Creatinine, Blood 0.62 mg/dL (0.60-1.20); Glomerular Filtration Rate >60 (60-); Glucose, Blood 99 mg/dL (70-99); Magnesium, Blood 2.8 mg/dL (1.6-2.4); Phosphorus, Blood 3.1 mg/dL (2.5-4.9); Potassium, Blood 4.1 mmol/L (3.5-5.5); Sodium, Blood 144 mmol/L (136-145)
--- NOTE | 2021-07-22 07:13 | NUR ---
END OF SHIFT SUMMARY: NO ACUTE CHANGES OVERNIGHT. PATIENT WAS PRONED AT 1999 AND DID EXCELLENT. PATIENT IS STILL NOT WAKING UP AND FOLLOWING COMMANDS. WILL COUGH OVER VENT AT TIMES BUT THAT IS ALL. HE HAS BEEN SB/SR AND HAS HAD A STABLE BP. VENT SETTINGS WERE ADJUSTED ACCORDINGLY AND FIO2 WAS DROPPED FROM 90 TO 70% SINCE PRONED. REMAINS SEDATED ON PROPOFOL, PRECEDEX, AND A FENTANYL BROADCAST MAINTENANCE ENGINEER. URINE OUTPUT MORE PACO AND SLIGHLY BLOOD TINGED AT TIMES. BM X2. UPDATED THIS MORNING VIA PHONE
--- NOTE | 2021-07-22 09:51 | NUR ---
CARE ASUUMED 0700 Pt intubated and sedated. Vent settings: AC VC 24/350/20/70%, SPO2 > 90%. LUNG SOUNDS CLEAR/DIM. Propofol GTT 50 MCG/KG/MIN, Precedex 0.5 mcg/kg/hr, Fentanyl BORING MACHINE FEEDER 75 mcg/hr. Pt responds to noxious stumli, gag and cough present during oral care. Currently in prone position. VHP @ Goal, residual of 150, bt hypoactive. Temp roberto in place, 300 ml of dark yellow urine output, temp of 99.7. NSR. Pt hypertensive sbp 180's, treated per emar. SWB in place.
--- NOTE | 2021-07-22 16:23 | NUR ---
Spoke to family via phone Vinh (patient son) called for update. Updated on current vent settings and treatment being provided. All questions answered. Pt appears to understand the severity of illness.
--- NOTE | 2021-07-22 18:01 | NUR ---
Shift Summary Pt intubated and sedated. Precedex 0.4 mcg/kg/hr, Propofol 50 mcg/kg/min, and Fentanyl RETAIL SPECIAL EVENT ASSOCIATE @ 75 MCG/HR. Pt responds to noxious stumli during oral care but otherwise not following commands or opening eyes. Vent settings: AC/VC 24/350/20/60%, SPO2 > 88%. Ok to have SPO2 > 88% per Dr. Ramachandran. Tube feed at goal, BT hypoactive. Temp roberto in place, 1400 ml of dark yellow urine output. SWB in place. VSS. Sinus duyen.
[2021-07-23 04:05] LABS: BASOPHILS ABSOLUTE AUTO 0.04 K/mm3 (0.00-0.23); BASOPHILS PERCENT AUTO 0 % (0-2); EOSINOPHILS ABSOLUTE AUTO 0.13 K/mm3 (0.00-0.68); EOSINOPHILS PERCENT AUTO 1 % (0-6); Hematocrit 33.4 % (37.0-53.0); Hemoglobin 10.1 g/dL (13.5-17.5); IMMATURE GRAN PERCENT AUTO 3 % (0-1); LYMPHOCYTES ABSOLUTE AUTO 0.66 K/mm3 (0.84-5.20); LYMPHOCYTES PERCENT AUTO 6 % (21-46); MONOCYTES ABSOLUTE AUTO 0.62 K/mm3 (0.16-1.47); MONOCYTES PERCENT AUTO 6 % (4-13); Mean Corpuscular HGB 28.5 pg (26.0-34.0); Mean Corpuscular HGB Conc 30.2 g/dL (31.5-36.5); Mean Corpuscular Volume 94 fL (80-100); Mean Platelet Volume 9.2 fL (9.1-12.4); NEUTROPHILS ABSOLUTE AUTO 8.94 K/mm3 (1.96-9.15); NEUTROPHILS PERCENT AUTO 84 % (41-73); NRBC ABSOLUTE 0.02 K/mm3 (0.00-0.02); NRBC Auto 0.2 /100 WBC (0.0-0.2); Platelet Count 192 K/mm3 (150-400); RDW Coefficient Variation 14.1 % (11.7-14.2); RDW Standard Deviation 49.7 fL (35.1-46.3); Red Blood Cell Count 3.55 M/mm3 (4.30-5.90); White Blood Cell Count 10.69 K/mm3 (4.00-11.30)
[2021-07-23 04:19] LABS: Albumin, Blood 1.5 g/dL (3.4-5.0); Anion Gap 0 mmol/L (6-16); Blood Urea Nitrogen 32 mg/dL (8-24); Bun/Creatinine Ratio 49.2 (12.0-20.0); CO2, Blood 41 mmol/L (21-32); Calcium, Blood 7.8 mg/dL (8.5-10.1); Chloride, Blood 104 mmol/L (98-108); Creatinine, Blood 0.65 mg/dL (0.60-1.20); Glomerular Filtration Rate >60 (60-); Glucose, Blood 92 mg/dL (70-99); Phosphorus, Blood 2.6 mg/dL (2.5-4.9); Potassium, Blood 3.9 mmol/L (3.5-5.5); Sodium, Blood 145 mmol/L (136-145)
--- NOTE | 2021-07-23 06:50 | NUR ---
END OF SHIFT SUMMARY: PATIENT PRONED AT 2000 AND TOLERATED FINE WITH MINOR DESATS INTO MID 80S. TEMPORARILY INCREASED TO 70% BUT TITRATED BACK DOWN TO 60% A COUPLE HOURS LATER. REMAINS SB/SR 45-60S. DOES NOT WAKE UP OR FOLLOW COMMANDS. REMAINS SEDATED WITH PROPOFOL, PRECEDEX, AND FENTANYL CORRECTIONAL PROGRAM SPECIALIST. ADEQUATE URINE OUTPUT. ONE BM. DISCUSSIONS ABOUT TRACH BEING DONE TODAY AND FAMILY CALLING WITH QUESTIONS ABOUT THE PROCEDURE BUT EXPLAINED THAT IT MAY NOT HAPPEN DUE TO VENT SEETINGS.
--- NOTE | 2021-07-23 10:00 | NUR ---
Care Assumed 0700 Pt intubated and sedated. Propofol 60 mcg/kg/min, Precedex 0.4 mcg/kg/hr, and fentanyl SMALL PARTS ASSEMBLER @ 75 mcg/hr. Pt not responsive, attempted to titrated Propofol but RR high 30's. Vent settings: AC/VC 24/350/20/60%, SPO2 > 88%. Pt is currently proned and per Dr. Lambert he would like patient to remain proned until Friday. VHP @ goal. Temp Shepherd in place, dark yellow clear output. SWB in place. NSR. VSS.
--- NOTE | 2021-07-23 12:26 | NUR ---
Vent changes per Dr. Lambert Per Dr. Lambert PEEP decreased to 18, FIO2 remains the same. RT notified. Dr. Lambert would like PEEP to be decreased as tolerated and FIO2 can be increased as needed.
--- NOTE | 2021-07-23 18:21 | NUR ---
Shift Summary Pt intubated and sedated. Propofol GTT 60 mcg/kg/min and Precedex 0.4 mcg/kg/hr, and Fentanyl ASSOCIATE PROGRAMMER. Vent settings: AC/VC 24/350/14/60%, spo2 > 90%. Unable to follow commands or respond to noxious stumli. Gag is present. Pt remains proned, per Dr. Lambert pt to remain proned tonight and will reasses tomorrow. VHP @ goal. Temp roberto in place. VSS. NSR. Dr. Lambert spoke to Diamond via phone and patients son to update on care being provided.
[2021-07-24 03:42] LABS: BASOPHILS ABSOLUTE AUTO 0.03 K/mm3 (0.00-0.23); BASOPHILS PERCENT AUTO 0 % (0-2); EOSINOPHILS ABSOLUTE AUTO 0.11 K/mm3 (0.00-0.68); EOSINOPHILS PERCENT AUTO 1 % (0-6); Hemoglobin 9.4 g/dL (13.5-17.5); IMMATURE GRAN ABSOLUTE AUTO 0.38 K/mm3 (0.00-0.10); IMMATURE GRAN PERCENT AUTO 5 % (0-1); LYMPHOCYTES ABSOLUTE AUTO 0.56 K/mm3 (0.84-5.20); LYMPHOCYTES PERCENT AUTO 7 % (21-46); MONOCYTES ABSOLUTE AUTO 0.28 K/mm3 (0.16-1.47); MONOCYTES PERCENT AUTO 4 % (4-13); Mean Corpuscular HGB 31.6 pg (26.0-34.0); Mean Corpuscular HGB Conc 33.6 g/dL (31.5-36.5); Mean Corpuscular Volume 94 fL (80-100); Mean Platelet Volume 10.4 fL (9.1-12.4); NEUTROPHILS ABSOLUTE AUTO 6.72 K/mm3 (1.96-9.15); NEUTROPHILS PERCENT AUTO 83 % (41-73); Platelet Count 172 K/mm3 (150-400); RDW Coefficient Variation 14.1 % (11.7-14.2); RDW Standard Deviation 47.8 fL (35.1-46.3); Red Blood Cell Count 2.97 M/mm3 (4.30-5.90); White Blood Cell Count 8.08 K/mm3 (4.00-11.30)
[2021-07-24 03:48] LABS: Base Excess Venous 16.7 mmol/L; Bicarbonate Venous 37.8 mmol/L (24.0-30.0); PCO2 Venous 70.1 mmHg (38-42); PO2 Venous 45.6 mmHg (38-42); pH Blood Venous 7.38 (7.34-7.37)
[2021-07-24 04:01] LABS: Magnesium, Blood 2.7 mg/dL (1.6-2.4)
[2021-07-24 04:12] LABS: Albumin, Blood 1.2 g/dL (3.4-5.0); Anion Gap 1 mmol/L (6-16); Blood Urea Nitrogen 30 mg/dL (8-24); Bun/Creatinine Ratio 51.8 (12.0-20.0); CO2, Blood 39 mmol/L (21-32); Calcium, Blood 6.3 mg/dL (8.5-10.1); Chloride, Blood 99 mmol/L (98-108); Creatinine, Blood 0.58 mg/dL (0.60-1.20); Glomerular Filtration Rate >60 (60-); Glucose, Blood 120 mg/dL (70-99); Phosphorus, Blood 2.1 mg/dL (2.5-4.9); Potassium, Blood 3.8 mmol/L (3.5-5.5); Sodium, Blood 139 mmol/L (136-145)
--- NOTE | 2021-07-24 06:39 | NUR ---
SHIFT SUMMARY HAVE NOT BEEN ABLE TO TITRATE SPO2 TONIGHT. WHEN PT REPOSITIONS, WILL DESATURATED TO LOW OF 85%, IF TURNING TO RIGHT SIDE WILL STAY THERE FOR ABOUT 30-45 MINUTES, EVEN WITH ADDITIONAL ATIVAN IVP PRIOR TO ACTIVITY. PLACED RECTAL TUBE PT WAS HAVING CONTINUOUS LOOSE STOOL, PLACED RECTAL TUBE. ASSESSMENT IS CHARTED. VSS. WILL CONTINUE TO MONITOR.
--- NOTE | 2021-07-24 13:32 | NUR ---
AT 1116 PATIENT GIVEN PROPOFOL 80MG, ETOMIDATE 20MG, ROCURONIUM 40MG, ATIVAN 2MG IVP GIVEN PRIOR TO INTUBATION. ETT 8.0, 24 AT TEETH. VENT SETTINGS AC 20/400/12/100 FIO2. PROPOFOL, LEVOPHED, NIMBEX GTT STARTED. TITRATE TO EFFECT. 16 FR. SALDANA TEMP PROBE PLACED WITHOUT DIFFICULTY. CONTINUE WITH PRECEDEX GTT PER DR DIXON. ATTEMPTED TO PLACE O.G. TUBE BUT UNSUCCESSFULY. WILL ATTEMPT AT A LATER TIME. POST CXR, PATIENT WAS PLACED IN PRONE POSITION BY PHYSICAL THERAPY TEAM. UPDATED FAMILY, EBONY JASON AND SON MELITA ON PATIENTS STATUS. CONTINUE TO MONITOR CLOSELY AND TX PRN.
--- NOTE | 2021-07-24 14:28 | NUR ---
UPDATED JAKE ON PATIENTS STATUS TODAY. EXPRESSED UNDERSTANDING. WAS CONCERNED IF PATIENT WAS STILL HAVING A TRACH/PEG TUBE PLACED TOMORROW. I INFORMED HER THAT WAS THE PLAN BUT WE WOULD UPDATE IF ANY CHANGES.
--- NOTE | 2021-07-24 18:23 | NUR ---
review of pt with staff. intesivist speaking with family will remain available
--- NOTE | 2021-07-24 18:34 | NUR ---
pt kps score is 20%
--- NOTE | 2021-07-24 18:35 | NUR ---
SHIFT SUMMARY DR DIXON MADE SOME VENT CHANGES AC/20/350/14/100% FIO2 WITH SATS 88-90%. LUNGS CLEAR THIS AM BUT THIS AFTERNOON WITH EXPIRATORY WHEEZE, IRREGULAR BREATHING NOTED. RESPIRATORY THERAPY NOTIFIED WITH NO CHANGES RECOMMENDED. TUBE FEEDING THIS EVENING WITH JEANNIE RESIDUALS. TURNED OFF TUBE FEEDING AND HAVE NOC SHIFT RECHECK/RESTART TUBE FEEDINGS. GOOD OUTPUT WITH LASIX TODAY. RECTAL TUBE PATENT WITH LIQUID BROWN STOOL. REMAINS EDEMATOUS TO ALL EXT'S, NO PITTING NOTED. TITRATED PRECEDEX GTT DOWN EARLY THIS AM BUT INCREASE BACK TO 0.6MCG/KG/HR TO HELP WITH VENTILATOR STATUS PER RESPIRATORY THERAPY. RIGHT SCLERA VERY SWOLLEN/BLOOD SHOT LOOKING. DR DIXON AWARE. NO OTHER CHANGES NOTED. WILL REPORT OFF TO NOC SHIFT.
--- NOTE | 2021-07-25 01:32 | NUR ---
07/24 @ 22:[address] CHACON OF LOW SPO2, ~ 85-88, NO NEW ORDERS RECEIVED, WILL CONTINUE TO MONITOR.
[2021-07-25 04:02] LABS: BASOPHILS ABSOLUTE AUTO 0.04 K/mm3 (0.00-0.23); BASOPHILS PERCENT AUTO 0 % (0-2); EOSINOPHILS ABSOLUTE AUTO 0.16 K/mm3 (0.00-0.68); EOSINOPHILS PERCENT AUTO 1 % (0-6); Hematocrit 34.3 % (37.0-53.0); Hemoglobin 10.3 g/dL (13.5-17.5); IMMATURE GRAN ABSOLUTE AUTO 0.54 K/mm3 (0.00-0.10); IMMATURE GRAN PERCENT AUTO 5 % (0-1); LYMPHOCYTES ABSOLUTE AUTO 0.59 K/mm3 (0.84-5.20); LYMPHOCYTES PERCENT AUTO 5 % (21-46); MONOCYTES ABSOLUTE AUTO 0.51 K/mm3 (0.16-1.47); MONOCYTES PERCENT AUTO 4 % (4-13); Mean Corpuscular HGB 28.5 pg (26.0-34.0); Mean Corpuscular Volume 95 fL (80-100); Mean Platelet Volume 9.3 fL (9.1-12.4); NEUTROPHILS ABSOLUTE AUTO 9.89 K/mm3 (1.96-9.15); NEUTROPHILS PERCENT AUTO 84 % (41-73); Platelet Count 189 K/mm3 (150-400); RDW Coefficient Variation 14.2 % (11.7-14.2); RDW Standard Deviation 49.1 fL (35.1-46.3); Red Blood Cell Count 3.62 M/mm3 (4.30-5.90); White Blood Cell Count 11.73 K/mm3 (4.00-11.30)
[2021-07-25 04:20] LABS: Albumin, Blood 1.5 g/dL (3.4-5.0); Anion Gap -2 mmol/L (6-16); Blood Urea Nitrogen 29 mg/dL (8-24); Bun/Creatinine Ratio 48.9 (12.0-20.0); CO2, Blood 42 mmol/L (21-32); Calcium, Blood 7.7 mg/dL (8.5-10.1); Chloride, Blood 103 mmol/L (98-108); Creatinine, Blood 0.59 mg/dL (0.60-1.20); Glomerular Filtration Rate >60 (60-); Glucose, Blood 104 mg/dL (70-99); Magnesium, Blood 2.6 mg/dL (1.6-2.4); Phosphorus, Blood 3.1 mg/dL (2.5-4.9); Sodium, Blood 143 mmol/L (136-145)
--- NOTE | 2021-07-25 06:43 | NUR ---
SHIFT SUMMARY INFORMED DR CHACON TWICE OF SPO2 MAINTAINING 85-88, NO NEW ORDERS RECEIVED. WOULD RECOMMEND GIVING ATIVAN PRIOR TO TURNING. ASIDE FROM HYPOXIA NO ACUTE CHANGES OVERNIGHT. ASSESSMENT IS CHARTED. VSS. WILL CONTINUE TO MONITOR.
--- NOTE | 2021-07-25 08:50 | NUR ---
ASSESSMENT- PT SEDATED WITH PROPOFOL AT 60 MCG/KG/MIN AND PRECEDEX AT 0.6 MCG/KG/HR. FENTANYL GTT AT 100 MCG/HR. PERRL. ORALLY INTUBATED, TUBE SECURE, SEE VENT SETTINGS. SATURATIONS 85-86%. APICAL REGULAR, SINUS. BP STABLE. ABDOMEN SOFT. TF ON HOLD FOR POSSIBLE SURGERY TODAY. RESIDUAL DISCARDED. SALDANA INTACT. RECTAL TUBE INTACT WITH SMALL AMOUNT DRAINAGE. PRONE POSITION, REPOSITIONED, SATURATIONS UNCHANGED.
--- NOTE | 2021-07-25 09:26 | NUR ---
DR. INGRAM HERE TO EVALUATE PT. UPDATED, AWARE OF LOVENOX DOSE
--- NOTE | 2021-07-25 10:28 | NUR ---
PT REPOSITIONED TO SUPINE FOR DR. INGRAM TO ASSESS. PT WITH SATURATIONS DECREASED TO 83%, WILL MONITOR. PHYSICIANS AWARE. DR. DIXON HERE
--- NOTE | 2021-07-25 11:24 | NUR ---
DR DIXON HERE-ASSESSED PT. CALLED WITH UPDATE. TRACH AND PEG ON HOLD FOR NOW. OXYGEN LEVELS IMPROVED SUPINE NOW-SATURATIONS 88%. BP STABLE.
--- NOTE | 2021-07-25 14:17 | NUR ---
TUBE FEED STARTED AT GOAL RATE OF 20MLS, WITH FLUSH PROGRAMED PER ORDERS
--- NOTE | 2021-07-25 17:33 | NUR ---
UPDATE TO PT'S SON, EXPLAINED PLAN OF CARE. SATURATIONS 90% ON VENT SUPPORT, HIGH PEEP 100% FIO2. REMAINS SEDATED, NO ATTEMPTS TO MOVE OR PULL AT TUBES
--- NOTE | 2021-07-25 19:45 | NUR ---
ASSUMED CARE PATIENT LYING IN BED, INTUBATED AND SEDATED ON PROPOFOL 60MCG/KG/MIN, PRECEDEX @ 0.6MCG/KG/HR, AND FENTANYL @ 100MCG/HR. NS @ 10ML/HR X 2 INTO PICC LINE. TF INFUSING THROUGH OGT AT GOAL RATE OF 20ML/HR. RED RASH IS VISIBLE ON PATIENT NECK AND CHEST. RECTAL TUBE AND TEMP SALDANA IN PLACE; PATENT AND DRAINING TO GRAVITY. VENT SETTINGS OF AC/VC 22/350/16/100% WITH SPO2 >90%. WILL CONTINUE TO MONITOR.
[2021-07-26 04:04] LABS: BASOPHILS ABSOLUTE AUTO 0.04 K/mm3 (0.00-0.23); BASOPHILS PERCENT AUTO 1 % (0-2); EOSINOPHILS ABSOLUTE AUTO 0.22 K/mm3 (0.00-0.68); EOSINOPHILS PERCENT AUTO 3 % (0-6); Hematocrit 31.9 % (37.0-53.0); Hemoglobin 9.6 g/dL (13.5-17.5); IMMATURE GRAN ABSOLUTE AUTO 0.36 K/mm3 (0.00-0.10); IMMATURE GRAN PERCENT AUTO 4 % (0-1); LYMPHOCYTES ABSOLUTE AUTO 0.67 K/mm3 (0.84-5.20); LYMPHOCYTES PERCENT AUTO 8 % (21-46); MONOCYTES ABSOLUTE AUTO 0.38 K/mm3 (0.16-1.47); MONOCYTES PERCENT AUTO 5 % (4-13); Mean Corpuscular HGB 28.7 pg (26.0-34.0); Mean Corpuscular HGB Conc 30.1 g/dL (31.5-36.5); Mean Corpuscular Volume 95 fL (80-100); Mean Platelet Volume 9.8 fL (9.1-12.4); NEUTROPHILS ABSOLUTE AUTO 6.74 K/mm3 (1.96-9.15); NEUTROPHILS PERCENT AUTO 80 % (41-73); NRBC ABSOLUTE 0.02 K/mm3 (0.00-0.02); NRBC Auto 0.2 /100 WBC (0.0-0.2); Platelet Count 175 K/mm3 (150-400); RDW Coefficient Variation 14.2 % (11.7-14.2); RDW Standard Deviation 49.4 fL (35.1-46.3); Red Blood Cell Count 3.35 M/mm3 (4.30-5.90); White Blood Cell Count 8.41 K/mm3 (4.00-11.30)
[2021-07-26 04:27] LABS: Albumin, Blood 1.3 g/dL (3.4-5.0); Anion Gap 0 mmol/L (6-16); Blood Urea Nitrogen 27 mg/dL (8-24); CO2, Blood 43 mmol/L (21-32); Calcium, Blood 7.6 mg/dL (8.5-10.1); Chloride, Blood 102 mmol/L (98-108); Creatinine, Blood 0.55 mg/dL (0.60-1.20); Glomerular Filtration Rate >60 (60-); Glucose, Blood 97 mg/dL (70-99); Magnesium, Blood 2.3 mg/dL (1.6-2.4); Phosphorus, Blood 2.7 mg/dL (2.5-4.9); Potassium, Blood 3.8 mmol/L (3.5-5.5); Sodium, Blood 145 mmol/L (136-145)
--- NOTE | 2021-07-26 06:05 | NUR ---
UPDATE FOR PATIENTS CALLED FOR AN UPDATE ON PATIENT CONDITION. EXPLAINED TO THAT NO CHANGE IN PATIENT CONDITION DURING SHIFT AND THAT PATIENT IS STILL IN CRITICAL CONDITION WITH 100% FIO2 REQUIREMENTS FROM VENTILATOR. EXPLAINED THAT PATIENT IS NOT CURRENTLY SCHEDULED FOR SURGERY FOR TRACH PLACEMENT, BUT WILL BE REEVALUATED TODAY BY PHYSICIAN.
--- NOTE | 2021-07-26 07:06 | NUR ---
SHIFT SUMMARY PATIENT REMAINED PRONED, INTUBATED AND SEDATED WITH NO CHANGE IN GTT RATES. PROPOFOL REMAINED AT 60MCG/KG/MIN, PRECEDEX 0.6MCG/KG/HR, AND FENTANYL 100MCG/HR. NS INF TKO. VENT SETTINGS REMAINED AT AC/VC 22/350/16/100% WITH SPO2 >90%. TF REMAINED AT GOAL RATE OF 20ML/HR. TEMP SALDANA AND RECTAL TUBE PATENT AND DRAINING TO GRAVITY WITH 550ML URINE OUTPUT AND 200ML STOOL OUTPUT. BOWEL TONES REMAINED HYPOACTIVE DESPITE REGLAN. NO OTHER MAJOR CHANGES DURING SHIFT.
--- NOTE | 2021-07-26 08:50 | NUR ---
ASSESSMENT- PT SEDATED WITH PROPOFOL 60 MCG/KG/MIN AND PRECEDEX AT 0.6 MCG/KG/HR. NO RESPONSE TO VERBAL OR PAINFUL STIMULUS. PERRL, SCLERA LEFT EYE REDDENED. ORALLY INTUBATED, TUBE SECURE, TOERATING VENT SETTINGS 100% OXYGEN HIGH PEEP 16. SUCTIONED SCANT ETT SECRETIONS. PRONE POSITION, REPOSITIONED HEAD AND ARMS FOR TURN, TOLERATED WELL. LUNGS CLEAR, DIMINISHED THROUGHOUT. APICAL REGULAR, NSR. BP STABLE. PICC LINE INTACT, NS TKO. ABODMEN LARGE, SOFT WITH RARE BOWEL SOUNDS. UO VIA SALDANA. ANASARCA, 2+ LOWER EXTREMITIES, ARMS.
--- NOTE | 2021-07-26 12:36 | NUR ---
PT TURNED TO SUPINE WITH MULTIPLE STAFF, TOLERATED WELL, SATURATIONS STABLE AT 90% WITH FULL VENT SUPPORT. BP STABLE, SR
--- NOTE | 2021-07-26 14:22 | NUR ---
PT TO CT AND RETURN TO ROOM, TOLERATED WELL. VSS
--- NOTE | 2021-07-26 18:30 | NUR ---
PT STABLE, TOLERATING VENT, VSS. PT'S SON CALLED-UPDATED. CHEST/ABDOMINAL RASH VERY REDDENED, UPDATE TO MADDY JOHNSON GIVEN. TUBE FEEDING WITH HIGH RESIDUAL THIS MORNING-INFUSING NOW. ABDOMEN REMAINS LARGE WITH ONLY FEW BOWEL SOUNDS. UO VIA SALDANA. CONTINUE SEDATIVES-PROPOFOL AT 60 MCG/KG/MIN, PRECEDEX AT 0.6 MCG/KG/HR AND FENTANYL GTT AT 100 MCG/HR. NO S/S PAIN.
--- NOTE | 2021-07-26 23:10 | NUR ---
ASSUMED CARE PATIENT LYING IN BED INTUBATED ON AC/VC 22/450/16/100% WITH SPO2> 90% AND RR 22-25, SEDATED ON PROPOFOL 60MCG/KG/MIN, PRECEDEX @ 0.6MCG/KG/HR, AND FENTANYL @ 100MCG/HR; NS TKO X2 INF. TF AT GOAL RATE OF 20ML/HR. TEMP SALDANA AND RECTAL TUBE PATENT AND DRAINING TO GRAVITY. NO BELONGINGS AT BEDSIDE. RED RASH TO TRUNK AND GROIND PRESENT. WILL CONTINUE TO MONITOR THROUGHOUT SHIFT.
[2021-07-27 04:31] LABS: BASOPHILS ABSOLUTE AUTO 0.06 K/mm3 (0.00-0.23); BASOPHILS PERCENT AUTO 1 % (0-2); EOSINOPHILS ABSOLUTE AUTO 0.25 K/mm3 (0.00-0.68); EOSINOPHILS PERCENT AUTO 3 % (0-6); Hematocrit 32.1 % (37.0-53.0); Hemoglobin 10.3 g/dL (13.5-17.5); IMMATURE GRAN ABSOLUTE AUTO 0.58 K/mm3 (0.00-0.10); IMMATURE GRAN PERCENT AUTO 6 % (0-1); LYMPHOCYTES ABSOLUTE AUTO 0.48 K/mm3 (0.84-5.20); LYMPHOCYTES PERCENT AUTO 5 % (21-46); MONOCYTES ABSOLUTE AUTO 0.53 K/mm3 (0.16-1.47); MONOCYTES PERCENT AUTO 6 % (4-13); Mean Corpuscular HGB 30.1 pg (26.0-34.0); Mean Corpuscular HGB Conc 32.1 g/dL (31.5-36.5); Mean Corpuscular Volume 94 fL (80-100); Mean Platelet Volume 9.7 fL (9.1-12.4); NEUTROPHILS ABSOLUTE AUTO 7.18 K/mm3 (1.96-9.15); NEUTROPHILS PERCENT AUTO 79 % (41-73); NRBC ABSOLUTE 0.02 K/mm3 (0.00-0.02); NRBC Auto 0.2 /100 WBC (0.0-0.2); Platelet Count 200 K/mm3 (150-400); RDW Standard Deviation 48.2 fL (35.1-46.3); Red Blood Cell Count 3.42 M/mm3 (4.30-5.90); White Blood Cell Count 9.08 K/mm3 (4.00-11.30)
[2021-07-27 04:31] LABS: Base Excess Venous 23.1 mmol/L; Bicarbonate Venous 43.7 mmol/L (24.0-30.0); PO2 Venous 49.6 mmHg (38-42)
[2021-07-27 04:32] LABS: PCO2 Venous 83.9 mmHg (38-42); pH Blood Venous 7.37 (7.34-7.37)
[2021-07-27 04:48] LABS: Albumin, Blood 1.4 g/dL (3.4-5.0); Anion Gap 1 mmol/L (6-16); Blood Urea Nitrogen 22 mg/dL (8-24); Bun/Creatinine Ratio 40.6 (12.0-20.0); CO2, Blood 43 mmol/L (21-32); Calcium, Blood 6.7 mg/dL (8.5-10.1); Chloride, Blood 98 mmol/L (98-108); Creatinine, Blood 0.54 mg/dL (0.60-1.20); Glomerular Filtration Rate >60 (60-); Glucose, Blood 86 mg/dL (70-99); Phosphorus, Blood 1.9 mg/dL (2.5-4.9); Potassium, Blood 3.4 mmol/L (3.5-5.5); Sodium, Blood 142 mmol/L (136-145)
--- NOTE | 2021-07-27 06:34 | NUR ---
END OF SHIFT SUMMARY PATIENT REMAINED INTUBATED ON AC/VC 22/450/16/100% AND SEDATED WITH PROPOFOL @ 60MCG/KG/MIN, FENTANYL @ 100MCG/HR, AND PRECEDEX @ 0.6MCG/KG/HR; NS INF @ 10ML/HR. PATIENT MAINTAINED SATURATIONS OF 90-91% FOR MOST OF SHIFT, BUT THEN BEGAN DESATTING TO 82-86% AFTER ATTEMPTING REPOSITIONING TO RT SIDE FROM LT SIDE. PATIENT PLACED BACK IN LT SIDE LYING POSITION AND 2MG ATIVAN GIVEN TO PREVENT PATIENT FIGHTING VENT; SATURATIONS RETURNED TO 86%. PATIENT HAD HIGH RESIDUALS FROM TF LEADING TO TF BEING TURNED OFF. TF RESTARTED THIS MORNING AT 10ML/HR W/ GOAL RATE OF 20ML/HR. NO STOOL OUTPUT FROM RECTAL TUBE THIS SHIFT AND ABDOMEN REMAINED DISTENDED AND FIRM TO PALPATION DESPITE DSS AND REGLAN. RED RASH TO TRUNK AND GROIN WORSENED DURING SHIFT DESPITE BENADRYL IV ADMINISTERED ON DAY SHIFT PRIOR TO RECIEVING REPORT. TEMP SALDANA PATENT AND DRAINING DARK YELLOW URINE WITH SEDIMENT. MINIMAL THICK HAAS/YELLOW SECRETIONS SUCTIONED FROM ETT. NO NEUROLOGICAL RESPONSES THROUGHOUT ASSESSMENTS WITH SLUGGISH TO NO LIGHT RESPONSE TO PUPILS. HALF THE GOAL RATE
--- NOTE | 2021-07-27 08:10 | NUR ---
INITIAL ASSESSMENT PATIENT INTUBATED AND ON SEDATION. PATIENT UNRESPONSIVE. NO COUGH, GAG, OR SWALLOWING REFLEXES NOTED. PROPOFOL DECREASED FROM 60 MCG/ KG/ MINUTE TO 45. PRECEDEX AT 0.6 MCG/ KG/ HOUR. FENTANYL DRIP AT 100 MCG/ HOUR. PATIENT AFEBRILE. NO SIGNS OF PAIN NOTED. L EYE REDDENED. R EYE BLOODY. DR. AYALA AWARE. SCLERA EDEMATOUS. PATIENT ON VENT SETTINGS OF AC/ VC 22, TV 350, PEEP 16 AND FIO2 OF 100%. LUNG SOUNDS DIMINISHED THROUGHOUT. SMALL AMOUNT OF THICK, HAAS/ PINK SECRETIONS SUCTIONED FROM ETT. PATIENT IN SR, HR 70S TO 80S. SBP IN THE 1-TEENS. PATIENT EDEMATOUS. ABDOMEN MODERATELY DISTENDED, FIRM, WITH TYMPANIC BOWEL SOUNDS NOTED. RECTAL TUBE IN PLACE DRAINING BROWN, LIQUID STOOL. VHP TF INFUSING AT GOAL RATE OF 20 MLS/ HOUR WITH 30 MLS WATER FLUSH Q4H. SALDANA DRAINING DARK YELLOW COLORED URINE. IV LASIX GIVEN THIS AM. FISSURE NOTED TO COCCYX. PATIENT HAS RASH FROM NECK TO SCROTUM AND BEGINNING OF THIGHS. SCROTUM EDEMATOUS. NS TKO X 2. PATIENT RECEIVING 40 MEQ KCL THIS AM FOR POTASSIUM OF 3.4. BED LOW. WILL CONTINUE TO MONITOR PATIENT FREQUENTLY THROUGHOUT SHIFT.
--- NOTE | 2021-07-27 09:00 | NUR ---
DR. AYALA UPDATED ON PATIENT STATUS. INFORMED OF IONIZED CALCIUM OF 1.00, POTASSIUM OF 3.4, AND PHOSPHORUS OF 1.9 THIS AM. INFORMED THAT PATIENT RECEIVING 40 MEQ KCL AT THIS TIME. INFORMED THAT PATIENT DESATTED TO LOW 80S WITH REPOSITIONING ON LARD MAKER AND THAT HE IS ALSO STAYING MID 80S THIS AM AFTER REPOSITIONING. INFORMED THAT PATIENT DESATS MOST WHEN TURNED TO THE L AND DOES BETTER WHEN TURNED TO THE R. INFORMED THAT PATIENT'S R EYE IS BLOODY. INFORMED THAT PATIENT'S RASH LOOKS MORE RED THAN HAS PREVIOUSLY. NO ORDERS RECEIVED AT THIS TIME.
--- NOTE | 2021-07-27 12:35 | NUR ---
PATIENT AFEBRILE. PROPOFOL PLACED ON SB FOR SEDATION VACATION. HR 80S TO 90S. SBP 120S TO 130S. SUCTIONING OUT MODERATE AMOUNT OF HAAS/ PINK SPUTUM FROM ETT. PEEP INCREASED THIS AM FROM 16 TO 18. TF RESIDUAL OF 220 MLS OBTAINED AND REINSTILLED. NO OTHER ACUTE CHANGES TO NOTE ON AT THIS TIME. WILL CONTINUE TO MONITOR.
--- NOTE | 2021-07-27 14:59 | NUR ---
DR. CABRERA ASKED TO COME TO PATIENT ROOM TO VIEW PATIENT'S RASH. IS NOT GETTING LARGER IN SIZE BUT IS GETTING BRIGHTER RED AND DARKER RED. DR. CABRERA IN ROOM AT THIS TIME.
--- NOTE | 2021-07-27 16:00 | NUR ---
PATIENT AFEBRILE. HR 70S TO 80S. SBP 130S TO 170S. PROPOFOL INCREASED TO 30 MCG/ KG/ MINUTE FOR SIGNS OF ASYNCHRONY WITH THE VENT. EVEN WHEN PROPOFOL COMPLETELY ON SB, PATIENT REMAINS UNRESPONSIVE. PATIENT GIVEN COMPLETE BED BATH. NO OTHER ACUTE CHANGES TO NOTE ON AT THIS TIME. WILL CONTINUE TO MONITOR.
--- NOTE | 2021-07-27 18:51 | NUR ---
SHIFT SUMMARY PATIENT REMAINED INTUBATED. PATIENT HAD SEDATION VACATION THIS SHIFT BUT STILL REMAINED UNRESPONSIVE. PATIENT PUT BACK ON SEDATION WAS HAVING MORE ASYNCHRONOUS EPISODES WITH THE VENTILATOR. PATIENT REMAINED AFEBRILE. NO SIGNS OF PAIN NOTED THIS SHIFT. LUNGS REMAINED DIMINISHED THROUGHOUT. AC 22, TV 350, PEEP INCREASED FROM 16 TO 18 THIS SHIFT, AND FIO2 REMAINED 100%. PATIENT CONTINUED TO HAVE MODERATE AMOUNT OF THICK, HAAS/ PINK SPUTUM BEING SUCTIONED FROM ETT. PATIENT REMAINED IN SR, HR 70S TO 90S. SBP 1-TEENS TO 170S. NO DRAINAGE FROM RECTAL TUBE THIS SHIFT. TF REMAINED AT GOAL RATE. RESIDUAL 220 MLS THIS SHIFT. 1200 MLS OF DARK YELLOW URINE DRAINED FROM SALDANA. RASH WORSENED THIS SHIFT. ANTIBIOTICS CHANGED AND PRN BENADRYL ORDERED. PROPOFOL CURRENTLY AT 30 MCG/ KG/ MINUTE, PRECEDEX AT 0.7 MCG/ KG/ HOUR. PATIENT RECEIVED 40 MEQ KCL AND 30 MM KPHOS TODAY FOR REPLACEMENT. PATIENT NO LONGER TO BE PRONED PER DR. AYALA. COMPLETE BED BATH PERFORMED THIS SHIFT. NEW SPUTUM CULTURE SENT TO LAB. PATIENT APPEARS COMFORTABLE AT THIS TIME. BED LOW. REPORT WILL BE GIVEN TO [facility] APPLICATIONS INSTRUCTOR NURSE SHORTLY.
--- NOTE | 2021-07-27 20:00 | NUR ---
ASSUMING PT CARE: PT INTUBATED & SEDATED. VENT: AC 22/350, 18/100%. GTTs: PROPOFOL 30mcg/kg/min, PRECEDEX 0.7mcg/kg/hr, FENTANYL 100mcg/hr. EYES TAPED CLOSED. NO COUGH, GAG, SWALLOW. NO RESPONSE TO ORAL CARE OR PAINFUL STIMULI. HR NSR, 80s. SPO2 93%. SBP STABLE. RASH TO TRUNK DOES NOT APPEAR TO HAVE WORSENED OR SPREAD OUTSIDE THE DEMARCATED AREAS PREVIOUSLY DRAWN. PT MEDICATED W/ BENADRYL. SEE INITIAL SHIFT ASSESSMENT. WILL CONTINUE TO MONITOR & REPORT APPROPRIATE.
--- NOTE | 2021-07-27 20:16 | NUR ---
UPDATE: PT'S SPOUSE, JAKE, CALLED REQUESTING AN UPDATED. INFORMED THERE HAVE BEEN NO CHANGES, POSITIVE OR NEGATIVE. SHE REQUESTS TO COME IN 07/29 TO DISCUSS PLAN OF CARE. SHE EXPLAINS SHE WOULD COME TOMORROW PREVIOUSLY DISCUSSED, BUT SHE NEEDS TIME TO "WRITE OUT EVERYTHING I WANT TO SAY TO HIM". FAMILY ENCOURAGED TO DISCUSS THEIR WISHES & CALL FOR ANY QUESTIONS OR CONCERNS.
[2021-07-28 04:28] LABS: BASOPHILS ABSOLUTE AUTO 0.09 K/mm3 (0.00-0.23); BASOPHILS PERCENT AUTO 1 % (0-2); EOSINOPHILS ABSOLUTE AUTO 0.21 K/mm3 (0.00-0.68); EOSINOPHILS PERCENT AUTO 2 % (0-6); Hematocrit 36.1 % (37.0-53.0); Hemoglobin 10.7 g/dL (13.5-17.5); IMMATURE GRAN ABSOLUTE AUTO 0.72 K/mm3 (0.00-0.10); IMMATURE GRAN PERCENT AUTO 6 % (0-1); LYMPHOCYTES ABSOLUTE AUTO 0.53 K/mm3 (0.84-5.20); LYMPHOCYTES PERCENT AUTO 5 % (21-46); MONOCYTES ABSOLUTE AUTO 0.72 K/mm3 (0.16-1.47); MONOCYTES PERCENT AUTO 6 % (4-13); Mean Corpuscular HGB 28.6 pg (26.0-34.0); Mean Corpuscular HGB Conc 29.6 g/dL (31.5-36.5); Mean Corpuscular Volume 97 fL (80-100); Mean Platelet Volume 9.7 fL (9.1-12.4); NEUTROPHILS ABSOLUTE AUTO 9.21 K/mm3 (1.96-9.15); NEUTROPHILS PERCENT AUTO 80 % (41-73); NRBC ABSOLUTE 0.02 K/mm3 (0.00-0.02); NRBC Auto 0.2 /100 WBC (0.0-0.2); Platelet Count 240 K/mm3 (150-400); RDW Coefficient Variation 14.3 % (11.7-14.2); RDW Standard Deviation 50.3 fL (35.1-46.3); Red Blood Cell Count 3.74 M/mm3 (4.30-5.90); White Blood Cell Count 11.48 K/mm3 (4.00-11.30)
[2021-07-28 04:57] LABS: Albumin, Blood 1.6 g/dL (3.4-5.0); Blood Urea Nitrogen 25 mg/dL (8-24); Bun/Creatinine Ratio 42.9 (12.0-20.0); Calcium, Blood 7.5 mg/dL (8.5-10.1); Chloride, Blood 97 mmol/L (98-108); Creatinine, Blood 0.58 mg/dL (0.60-1.20); Glomerular Filtration Rate >60 (60-); Glucose, Blood 109 mg/dL (70-99); Phosphorus, Blood 2.5 mg/dL (2.5-4.9); Potassium, Blood 3.8 mmol/L (3.5-5.5); Sodium, Blood 143 mmol/L (136-145)
[2021-07-28 05:02] LABS: Anion Gap Unable to Calculate mmol/L (6-16); CO2, Blood >45 mmol/L (21-32)
--- NOTE | 2021-07-28 06:16 | NUR ---
SHIFT SUMMARY: PT REMAINS INTUBATED & SEDATED. VENT: AC 22/350, 18/100%. GTTs: PROPOFOL 45mcg/kg/min, PRECEDEX 0.7mcg/kg/hr, FENTANYL 100mcg/hr. PEAK & PLATEAU PRESSURES INCREASED INTERMITTENTLY T/O THE NIGHT. APPROX 2hrs AGO, PEAK PRESSURES REACHED 60 & PLATEAU PRESSURES REACHED & SUSTAINED @ 55. SPO2 ALSO DECREASED & SUSTAINED 86-88%. RT CALLED TO BEDSIDE. AFTER INC PROPOFOL FROM 30 TO 45mcg/kg/min & RECLINING HOB TO APPROX 15degrees, PRESSURES RETURNED TO 30s-40s & SATS IMPROVED TO 91%. 1050cc PACO URINE OUTPUT. RASH TO THE TRUNK & GROIN, UNCHANGED. PLAN TO DISCUSS OPTION FOR COMFORT CARE W/ MD & FAMILY TOMORROW MORNING. SEE PREVIOUS NOTATION. WILL CONTINUE TO MONITOR UNTIL REPORT OFF TO ONCOMING RN.
--- NOTE | 2021-07-28 08:00 | NUR ---
INITIAL ASSESSMENT PATIENT INTUBATED AND ON SEDATION. PATIENT UNRESPONSIVE. PATIENT AFEBRILE. L EYE REACTS BRISKLY TO LIGHT. R EYE SLUGGISH. NO SIGNS OF PAIN NOTED. PATIENT ON AC VENT SETTINGS 22, TV 350, PEEP 18 AND 100% FIO2. PATIENT IN SR, HR 80S TO 100. SBP IN THE LOW 100S. ABDOMEN MODERATELY DISTENDED, FIRM, WITH TYMPANIC BOWEL SOUNDS NOTED. RECTAL TUBE IN PLACE DRAINING SCANT, BROWN, LOOSE STOOL. TF INFUSING AT GOAL RATE. RESIDUAL OF 170 MLS OBTAINED AND REINSTILLED THIS AM. SALDANA DRAINING DARK YELLOW COLORED URINE. FISSURE NOTED TO COCCYX. RASH EXTENDS FROM NECK TO TOPS OF THIGHS AND GENITALS. FENTANYL DRIP AT 100 MCG/ HOUR, PROPOFOL AT 45 MCG/ KG/ MINUTE, PRECEDEX AT 0.7 MCG/ KG/ HOUR, NS TKO X 2. BED LOW. WILL CONTINUE TO MONITOR PATIENT FREQUENTLY THROUGHOUT SHIFT.
--- NOTE | 2021-07-28 12:00 | NUR ---
PATIENT AFEBRILE. HR 60S TO 80S. SBP IN THE 140S. PATIENT ON VENT SETTINGS OF AC 24, TV 330, PEEP 18 AND FIO2 OF 100%. NO OTHER ACUTE CHANGES TO NOTE ON AT THIS TIME. WILL CONTINUE TO MONITOR.
--- NOTE | 2021-07-28 15:22 | NUR ---
NO SEDATION VACATION TODAY PER DR. CABRERA.
--- NOTE | 2021-07-28 19:11 | NUR ---
SHIFT SUMMARY PATIENT REMAINED INTUBATED AND SEDATED. PATIENT REMAINS UNRESPONSIVE. PATIENT REMAINED AFEBRILE. PATIENT ENDED SHIFT ON VENT SETTINGS OF AC 24, TV 330, PEEP 18 AND 100% FIO2. LESS SPUTUM FROM ETT THIS SHIFT THAN YESTERDAY. LUNGS REMAINED DIM THROUGHOUT. PATIENT REMAINED IN SR, HR 60S TO 100. SBP LOW 100S TO 140S. NO RECTAL TUBE OUTPUT THIS SHIFT. TF REMAINED AT GOAL RATE. SALDANA DRAINED ADEQUATE AMOUNT OF DARK YELLOW URINE. PATIENT REPOSITIONED THROUGHOUT SHIFT. PATIENT RECEIVED BEDBATH THIS SHIFT. NO SEDATION VACATION THIS SHIFT. PATIENT'S SON, JAMIE, HERE TO VISIT TODAY. PATIENT'S TO VISIT TOMORROW TO MAKE A DECISION ABOUT CARE. REPORT HAS BEEN GIVEN TO ASSUMING STRAIGHTEDGE MACHINE OPERATOR HELPER NURSE.
--- NOTE | 2021-07-28 20:00 | NUR ---
ASSUMING PT CARE: PT INTUBATED & SEDATED. VENT: AC VC 24/350, 18/100%. GTTs: PROPOFOL 45mcg/kg/min, PRECEDEX 0.7mcg/kg/hr, FENTANYL 100mcg/hr. NO RESPONSE TO NOXIOUS STIMULI. NO COUGH/GAG/SWALLOW. VENT ALARMS INTERMITTENTLY W/ HIGH PEAK & PLATEAU PRESSURES IN THE 50s. TV 300-400s. RASH TO TRUNK & GENITALS APPEARS UNCHANGED FROM YESTERDAY. SCROTUM RED & EDEMETOUS, PILLOW CASE USED SLING TO ELEVATE SCROTUM. SEE INITIAL SHIFT ASSESSMENT. WILL CONTINUE TO MONITOR & REPORT APPROPRIATE.
--- NOTE | 2021-07-28 20:21 | NUR ---
UPDATE: FAMILY PHONE CALL. PT'S SPOUSE, JAKE, CALLED FOR AN UPDATE & TO INFORM SHE WILL BE COMING IN TOMORROW @ 1030 TO HAVE A FAMILY MEETING. SPOUSE BELIEVES IF THE PT HEARS HER VOICE, "HE WILL FIND STRENGTH" & "PUSH THROUGH THIS". WHEN EXPLAINED HOW DIRE THE PT's PROGNOSIS IS, SPOUSE DOES APPEARS SOMEWHAT RECEPTIVE. SHE STS SHE IS BRINGING IN A LETTER TO READ TO HIM & SAY HER FINAL WORDS. SHE WILL BE COMING ALONE, I WILL DISCUSS W/ FISH ROE TECHNICIAN TO ARRANGE FOR PALLIATIVE CARE TO BE HERE W/ HER FOR THE FAMILY MEETING.
[2021-07-29 04:27] LABS: Base Excess Venous 23.6 mmol/L; Bicarbonate Venous 43.5 mmol/L (24.0-30.0); PCO2 Venous 104 mmHg (38-42); pH Blood Venous 7.29 (7.34-7.37)
[2021-07-29 04:39] LABS: BASOPHILS PERCENT AUTO 1 % (0-2); EOSINOPHILS ABSOLUTE AUTO 0.37 K/mm3 (0.00-0.68); EOSINOPHILS PERCENT AUTO 3 % (0-6); Hematocrit 36.3 % (37.0-53.0); Hemoglobin 10.6 g/dL (13.5-17.5); IMMATURE GRAN ABSOLUTE AUTO 0.83 K/mm3 (0.00-0.10); IMMATURE GRAN PERCENT AUTO 6 % (0-1); LYMPHOCYTES ABSOLUTE AUTO 0.86 K/mm3 (0.84-5.20); LYMPHOCYTES PERCENT AUTO 6 % (21-46); MONOCYTES ABSOLUTE AUTO 0.93 K/mm3 (0.16-1.47); MONOCYTES PERCENT AUTO 7 % (4-13); Mean Corpuscular HGB 28.5 pg (26.0-34.0); Mean Corpuscular HGB Conc 29.2 g/dL (31.5-36.5); Mean Corpuscular Volume 98 fL (80-100); Mean Platelet Volume 9.7 fL (9.1-12.4); NEUTROPHILS ABSOLUTE AUTO 10.81 K/mm3 (1.96-9.15); NEUTROPHILS PERCENT AUTO 78 % (41-73); NRBC ABSOLUTE 0.02 K/mm3 (0.00-0.02); NRBC Auto 0.1 /100 WBC (0.0-0.2); Platelet Count 252 K/mm3 (150-400); RDW Coefficient Variation 14.3 % (11.7-14.2); RDW Standard Deviation 50.7 fL (35.1-46.3); Red Blood Cell Count 3.72 M/mm3 (4.30-5.90)
[2021-07-29 04:59] LABS: Albumin, Blood 1.5 g/dL (3.4-5.0); Blood Urea Nitrogen 29 mg/dL (8-24); Calcium, Blood 7.7 mg/dL (8.5-10.1); Chloride, Blood 97 mmol/L (98-108); Creatinine, Blood 0.56 mg/dL (0.60-1.20); Glomerular Filtration Rate >60 (60-); Glucose, Blood 112 mg/dL (70-99); Phosphorus, Blood 1.7 mg/dL (2.5-4.9); Potassium, Blood 4.1 mmol/L (3.5-5.5); Sodium, Blood 142 mmol/L (136-145)
[2021-07-29 05:30] LABS: Anion Gap Unable to Calculate mmol/L (6-16)
[2021-07-29 05:31] LABS: CO2, Blood >45 mmol/L (21-32)
--- NOTE | 2021-07-29 06:11 | NUR ---
SHIFT SUMMARY: PT REMAINS INTUBATED & SEDATED. NO CHANGES TO VENT T/O SHIFT. GTTs: PROPOFOL 45mcg/kg/min, PRECEDEX 0.7mcg/kg/hr, FENTANYL 100mcg/min. PEAK & PLATEAU PRESSURES REMAIN HIGH IN THE 40s, OFTEN HIGH 50+. SATS >88% HAVE BECOME MORE DIFFICULT TO MAINTAIN AFTER RN CARE, OFTEN DROPPING DOWN TO THE LOW 70s & INC TO 90% AFTER SEVERAL MINS. RASH APPEARS TO HAVE SPREAD TO THE NAPE OF THE NECK & FOREHEAD. PRN BENADRYL GIVEN. T-MAX 99.0 & HR INC TO 110, RI TYLENOL GIVEN. RECTAL TUBE HAS DRAINED ONLY SCANT STOOL x2DAYS, DC'd W/OUT DIFFICULTY. WILL CONTINUE TO MONITOR UNTIL REPORT OFF TO ONCOMING RN.
--- NOTE | 2021-07-29 08:15 | NUR ---
INITIAL ASSESSMENT PATIENT INTUBATED AND SEDATED. PATIENT UNRESPONSIVE. NO SIGNS OF PAIN NOTED. R EYE BLOODY. L EYE REDDENED. EYES TAPED SHUT TO PROTECT ARE NOT CLOSING COMPLETELY. SCLERAL EDEMA NOTED. PATIENT AFEBRILE. LUNGS COARSE THROUGHOUT. PATIENT ON AC 24, TV 330, PEEP 18 AND 100% FIO2. NO SPUTUM NOTED FROM ETT. PATIENT IN SR, HR IN THE 90S. SBP 1-TEENS TO 120S. PATIENT EXTREMITIES 2+ EDEMA. SCROTUM AND PENIS ALSO EDEMATOUS; ELEVATED ON PILLOW CASE. ABDOMEN MODERATELY DISTENDED, FIRM, WITH HYPOACTIVE BS NOTED. OG RESIDUAL OF 15 MLS REINSTILLED. RECTAL TUBE DC'D ON PACKING MACHINE CAN FEEDER. SALDANA DRAINING PACO COLORED URINE. FISSURE NOTED TO COCCYX. RASH TO TORSO, GENITALS, TOPS OF THIGHS AND IS NOW CRAWLING UP SIDES OF FACE AND OUTSIDE OF MARKED AREAS ON TORSO. FENTANYL INFUSING AT 100 MCG/ HOUR, PROPOFOL AT 45 MCG/ KG/ MINUTE, PRECEDEX AT 0.7 MCG/ KG/ HOUR, NS TKO X 2. PATIENT'S TO COME AROUND 1000 THIS AM TO MAKE CARE RELATED DECISION. BED LOW. WILL CONTINUE TO MONITOR PATIENT FREQUENTLY THROUGHOUT SHIFT.
--- NOTE | 2021-07-29 10:00 | NUR ---
DR. AYALA INFORMED THAT WBCS INCREASING. ALSO INFORMED THAT RASH IS EXTENDING PAST MARKINGS ON TORSO AND IS ALSO STARTING TO CRAWL UP NECK AND SIDES OF FACE. NO ORDERS RECEIVED AT THIS TIME.
--- NOTE | 2021-07-29 10:49 | NUR ---
PATIENT'S , JAKE, HERE TO SPEAK ABOUT CARE DECISIONS. DR. AYALA AND PALLIATIVE CARE NURSE, NISHA, GOING INTO ROOM WITH TO UPDATE ON PATIENT STATUS.
--- NOTE | 2021-07-29 12:30 | NUR ---
PATIENT AFEBRILE. HR 80S TO 90S. SBP 130S TO 140S. VENT SETTINGS REMAIN THE SAME. WILL CONTINUE TO MONITOR.
--- NOTE | 2021-07-29 15:00 | NUR ---
spent an hour with in room while she read a lettter to her . gently reviewed acceptance of his condition and comort care so family can be with hime and he can pass gently. Review with intesivist.
--- NOTE | 2021-07-29 16:00 | NUR ---
PATIENT HAS TEMP OF 99.1 DEGREES FAHRENHEIT. HR 70S TO 90S. SBP 150S TO 160S. PATIENT REMAINS ON SAME VENT SETTINGS. PROPOFOL AT 10 MCG/ KG/ MINUTE, PRECEDEX OFF, AND FENTANYL AT 35 MCG/ HOUR.
--- NOTE | 2021-07-29 19:06 | NUR ---
SHIFT SUMMARY PATIENT REMAINED INTUBATED. SEDATION DECREASED THIS SHIFT AND REMAINS DECREASED. PATIENT HAS REMAINED UNRESPONSIVE EXCEPT FOR SOME OCCASIONAL COUGHING. PATIENT HAD TMAX OF 99.1 DEGREES FAHRENHEIT. LUNGS REMAINED COARSE THROUGHOUT. NO SPUTUM SUCTIONED FROM ETT. VENT SETTINGS AC 24, TV 330, PEEP 18 AND 100% FIO2. PATIENT REMAINED IN SR, HR 70S TO 90S. SBP 1-TEENS TO 200S. PRN HYDRALAZINE AND LABETALOL EACH GIVEN OT THIS SHIFT. NO BM THIS SHIFT. TF REMAINED INFUSING AT GOAL RATE. SALDANA DRAINED 900 MLS OF [place] COLORED URINE. RASH INCREASED SLIGHTLY; DR. AYALA AWARE. FENTANYL AT 75 MCG/ HOUR, PROPOFOL AT 10 MCG/ KG/ MINUTE AND PRECEDEX OFF. HERE TO VISIT TODAY. PATIENT CHANGED FROM FULL CODE TO DNR. NO SIGNS OF PAIN NOTED AT THIS TIME. REPORT WILL BE GIVEN TO ONCOMING BROOD STATION MANAGER NURSE SHORTLY.
--- NOTE | 2021-07-29 21:07 | NUR ---
ASSUMING PT CARE: PT INTUBATED & SEDATED. VENT: VC 24/330, 18/100%. GTTs: PROPOFOL 10mcg/kg/min, FENTANYL 75mcg/hr. SOME COUGHING AGAINST ETT & SLIGHT BITING & TONGUE MOVEMENT W/ ORAL CARE. NO OTHER RESPONSE TO STIMULI. RASH TO TRUNK, NECK, & GENITALS APPEARS TO BE WORSENING, HOWEVER STILL BLANCHABLE, INTEGRITY INTACT. LUZ SCLERA VERY EDEMETOUS W/ R EYE STILL VERY RED. LACRI-LUBE APPLIED & EYES RE-TAPED CLOSED. SEE SHIFT ASSESSMENR FOR FULL PT ASSESSMENT. PT DOES APPEAR TO BE INCREASINGLY AGITATED, CORE TEMP 99.7, HR 126, SPO2 84%. PT REPOSITIONED & PROPOFOL INC TO 20mcg/kg/min W/ SOME RELIEF. WILL CONTINUE TO MONITOR T/O SHIFT & REPORT APPROPRIATE.
[2021-07-30 04:31] LABS: BASOPHILS ABSOLUTE AUTO 0.13 K/mm3 (0.00-0.23); BASOPHILS PERCENT AUTO 1 % (0-2); EOSINOPHILS ABSOLUTE AUTO 0.04 K/mm3 (0.00-0.68); EOSINOPHILS PERCENT AUTO 0 % (0-6); Hematocrit 35.7 % (37.0-53.0); Hemoglobin 10.4 g/dL (13.5-17.5); IMMATURE GRAN ABSOLUTE AUTO 1.09 K/mm3 (0.00-0.10); IMMATURE GRAN PERCENT AUTO 7 % (0-1); LYMPHOCYTES PERCENT AUTO 4 % (21-46); MONOCYTES ABSOLUTE AUTO 0.78 K/mm3 (0.16-1.47); MONOCYTES PERCENT AUTO 5 % (4-13); Mean Corpuscular HGB 28.5 pg (26.0-34.0); Mean Corpuscular HGB Conc 29.1 g/dL (31.5-36.5); Mean Corpuscular Volume 98 fL (80-100); Mean Platelet Volume 9.3 fL (9.1-12.4); NEUTROPHILS ABSOLUTE AUTO 12.18 K/mm3 (1.96-9.15); NEUTROPHILS PERCENT AUTO 82 % (41-73); NRBC ABSOLUTE 0.04 K/mm3 (0.00-0.02); NRBC Auto 0.3 /100 WBC (0.0-0.2); Platelet Count 272 K/mm3 (150-400); RDW Coefficient Variation 14.6 % (11.7-14.2); RDW Standard Deviation 52.2 fL (35.1-46.3); Red Blood Cell Count 3.65 M/mm3 (4.30-5.90); White Blood Cell Count 14.82 K/mm3 (4.00-11.30)
[2021-07-30 04:52] LABS: Albumin, Blood 1.7 g/dL (3.4-5.0); Blood Urea Nitrogen 42 mg/dL (8-24); Bun/Creatinine Ratio 65.9 (12.0-20.0); Calcium, Blood 7.9 mg/dL (8.5-10.1); Chloride, Blood 97 mmol/L (98-108); Creatinine, Blood 0.64 mg/dL (0.60-1.20); Glomerular Filtration Rate >60 (60-); Glucose, Blood 133 mg/dL (70-99); Phosphorus, Blood 2.4 mg/dL (2.5-4.9); Potassium, Blood 4.8 mmol/L (3.5-5.5); Sodium, Blood 141 mmol/L (136-145)
[2021-07-30 05:13] LABS: Anion Gap Unable to Calculate mmol/L (6-16); CO2, Blood >45 mmol/L (21-32)
--- NOTE | 2021-07-30 06:10 | NUR ---
SHIFT SUMMARY: PT INTUBATED & SEDATED. VENT: AC VC 24/330, 18/100%. GTTs: PROPOFOL 20mcg/kg/min, FENTANYL 75mcg/hr. PT RESTED WELL T/O THE NIGHT. @ TIMES PT HAD EPISODES OF ELEVATED PEAK & PLATEAU PRESSURES, COUGHING AGAINST ETT, SATS OF LOW 80s. SEDATION INC & PT APPEARED TO IMPROVE. TMAX 100.1. RASH CONTINUES TO MIGRATE, NOW TO THE THIGHS W/ NEW MOTTLING TO THE BLE. PLAN TO DISCUSS OPTIONS FOR COMFORT CARE W/ FAMILY TO DAY & CALL [facility] OFFICE & CANCEL PLAN FOR TRACH. WILL DISCUSS W/ AM RN.
--- NOTE | 2021-07-30 06:47 | NUR ---
Ethics consult order received and processed. Case details, medical history and bleak prognosis discussed with [place] stakeholders. 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 The principals must be gently but honestly informed today, through the process of informed dissent, that it is no longer appropriate or dignified to maintain this aggressive path, but that a hospice election will be initiated so that her loved one can make a peaceful transition. Please let me know if you need assistance with this difficult conversation. Thank you for this consult. Dave Gonzalez ThD
--- NOTE | 2021-07-30 10:13 | NUR ---
Update: Conversation facilitated with the principals spouse Diamond, and the principals son Vinh. I explained that continuing aggressive medical therapy at this point, as well as executing heroic measures, would be clinically unhelpful and disproportionate. I also assisted them with processing thier loss and grief within a theological framework and offered prayer for closure Diamond is profoundly worship. They agreed to extubation and comfort care. They will be arriving this afternoon to express final sentiments and parting encouragements. Thank you for this consult. Dave Gonzalez ThD
--- NOTE | 2021-07-30 10:54 | NUR ---
Case conference with pt's RN and Dave Gonzalez re: plan of care and plan for and son to come in for withdrawal of life support and start of comfort care this afternoon. Palliative Care will remain available as needed for support.
--- NOTE | 2021-07-30 12:14 | NUR ---
ASSUMED CARE OF PT, REPORT RCV'D FROM JANETH TORREZ. PT INTUBATED AND SEDATED. VENT SETTINGS 24/330/18/100%. PROPOFOL @ 10 MCG/KG/MIN, FENTANYL GTT @ 75 MCG/HR. NO RESPONSE TO VERBAL STIMULATION, NO WITHDRAWAL FROM PAINFUL/NOXIOUS STIMULI. PT'S FAMILY PLAN TO WITHDRAW CARE THIS AFTERNOON.
--- NOTE | 2021-07-30 15:36 | NUR ---
PT EXTUBATED AT 1420. PT'S AT BEDSIDE. PT PREMEDICATED FOR COMFORT. PT'S TOD 1425. REQUESTS BODY TRANSFERRED TO [facility] IN [place].
== END 2021-07-30 15:27 | DRG 870 ==
LOC: ER 08:11 → ICUE 10:29 → ERHOLD 10:29 → ICUE 12:52
PROVIDERS: Emergency Medicine; Family Medicine; Internal Medicine Critical Care Medicine; Pharmacist; Student in an Organized Health Care Education/Training Program; ADMIT Internal Medicine
PROC: 0BH18EZ Insertion of Endotracheal Airway into Trachea, Via Natural or Artificial Opening Endoscopic (ICD-10-PCS; principal; 2021-07-07)
PROC: 5A1955Z Respiratory Ventilation, Greater than 96 Consecutive Hours (ICD-10-PCS; 2021-07-07)
PROC: 8E0ZXY6 Isolation (ICD-10-PCS; 2021-07-07)
PROC: 3E0333Z Introduction of Anti-inflammatory into Peripheral Vein, Percutaneous Approach (ICD-10-PCS; 2021-07-07)
PROC: XW033E5 Introduction of Remdesivir Anti-infective into Peripheral Vein, Percutaneous Approach, New Technology Group 5 (ICD-10-PCS; 2021-07-07)
PROC: 02HV33Z Insertion of Infusion Device into Superior Vena Cava, Percutaneous Approach (ICD-10-PCS; 2021-07-07)
PROC: 3E043XZ Introduction of Vasopressor into Central Vein, Percutaneous Approach (ICD-10-PCS; 2021-07-07)
PROC: 05HM33Z Insertion of Infusion Device into Right Internal Jugular Vein, Percutaneous Approach (ICD-10-PCS; 2021-07-21)
DX: A41.89 Other specified sepsis (principal); U07.1 COVID-19; J12.82 Pneumonia due to coronavirus disease 2019; J80 Acute respiratory distress syndrome; J15.211 Pneumonia due to Methicillin susceptible Staphylococcus aureus; N17.9 Acute kidney failure, unspecified; Z66 Do not resuscitate; Z51.5 Encounter for palliative care; I24.8 Other forms of acute ischemic heart disease; E87.1 Hypo-osmolality and hyponatremia; I82.452 Acute embolism and thrombosis of left peroneal vein; I82.442 Acute embolism and thrombosis of left tibial vein; E87.2 Acidosis; G93.1 Anoxic brain damage, not elsewhere classified; R65.20 Severe sepsis without septic shock; I82.462 Acute embolism and thrombosis of left calf muscular vein; I10 Essential (primary) hypertension; R21 Rash and other nonspecific skin eruption; B95.1 Streptococcus, group B, as the cause of diseases classified elsewhere; E66.9 Obesity, unspecified; Z68.35 Body mass index [BMI] 35.0-35.9, adult; I70.229 Atherosclerosis of native arteries of extremities with rest pain, unspecified extremity; E03.9 Hypothyroidism, unspecified; R74.01 Elevation of levels of liver transaminase levels; Z79.899 Other long term (current) drug therapy
CPT/HCPCS: 31500; 31720; 36415; 36569; 36600; 51702; 70450; 71045; 71260; 80048; 80053; 80069; 80202; 81001; 82330; 82803; 82947; 83735; 84100; 84145; 84484; 85025; 85379; 85610; 85730; 87070; 87077; 87086; 87147; 87186; 87205; 93005; 93010; 93925; 93970; 94002; 94003; 94640; 96365-59; 96366-59; 96368; 96375-59; 99291-25; A9270; C1751; C9113; J0330; J0360; J0610; J0690; J0692; J1100; J1170; J1200; J1644; J1650; J1940; J2060; J2250; J2270; J2543; J2704; J2765; J3010; J3370; J3480; J7030; J7050; J7060; Q9967